=== PATIENT | female | born 1935 | race Caucasian/White ===

== ENCOUNTER 2019-11-26 20:24 | Inpatient (IN) | payer MEDICARE, BC ==
--- NOTE | 2019-11-26 21:46 | RAD ---
PORTABLE CHEST: 11/26/19 HISTORY: Dyspnea. Seizures. No comparison. Borderline cardiomegaly. Mild vascular congestion. No focal infiltrate. Suboptimal exam. Soft tissue attenuation obscures the lung bases. IMPRESSION: Mild vascular congestion. POS: [facility]
[2019-11-26 21:47] LABS: #Lymphocytes 0.3 thou/uL (1.20-3.40); %Basophils 0.4 % (0.0-1.0); %Lymphocytes 4.1 % (21.0-51.0); %Monocytes 11.8 % (0.0-10.0); %Neutrophils 83.6 % (42.0-75.0); Hemoglobin 14.2 g/dL (12.0-16.0); Mean Corpuscular HGB CONC 34.2 g/dL (32.0-36.0); Mean Corpuscular Hemoglobin 33.5 pg (27.0-31.0); Mean Corpuscular Volume 98.1 fL (78.0-98.0); Platelet Count 209 thou/uL (130-400); RBC Distribution Width 12.6 % (11.5-14.5); Red Blood Cell (RBC) Count 4.23 mill/uL (4.20-5.40); White Blood Cell (WBC) Count 8.4 thou/uL (4.8-10.8)
[2019-11-26] MEDS ORDERED: Acetaminophen 325 MG TAB ONE (21:51)
[2019-11-26 21:59] LABS: Bacteria/HPF 4+ HPF (None Seen); Bilirubin Negative (Negative); Blood, Urine 1+ (Negative); Clarity Turbid (Clear); Glucose, Urine (Dipstick) Normal (Negative); Leukocyte 250 Leu/uL (Negative); Nitrite 2+ (Negative); Protein, Urine (Dipstick) 70 mg/dL (Neg-Trace); Squamous Epithelial 0-3 HPF (0-3); Urobilinogen 6 mg/dL (Less than 2); WBC/HPF 21-50 HPF (0-3)
--- NOTE | 2019-11-26 22:01 | CT ---
CT HEAD WITHOUT CONTRAST: 11/26/19 HISTORY: Mental status change. Ventricles have normal size and position given the degree of atrophy. There is no evidence of intracranial mass or hemorrhage. No evidence of acute infarct. Sinuses are cl ear. There is evidence of prior left mastoid resection. IMPRESSION: No acute intracranial process. POS: [facility]
[2019-11-26 22:09] LABS: ALT (SGPT) 23 U/L (8-55); AST (SGOT) 29 U/L (5-34); Albumin 3.9 g/dL (3.4-4.8); Alkaline Phosphatase 57 U/L (40-110); Anion Gap 14 mmol/L (10-20); BUN (Urea Nitrogen) 27 mg/dL (9.8-20.1); Bilirubin, Total 0.7 mg/dL (0.2-1.2); Calc. Creatinine Clearance 0 mL/min (70-130); Calcium 9.2 mg/dL (7.8-10.44); Carbon Dioxide 28 mmol/L (23-31); Chloride 102 mmol/L (98-107); Estimated GFR-MDRD 64; Globulin 2.9 g/dL (2.4-3.5); Glucose 153 mg/dL (83-110); Potassium 3.7 mmol/L (3.5-5.1); Protein, Total 6.8 g/dL (6.0-8.3); Sodium 140 mmol/L (136-145)
[2019-11-26] MEDS ORDERED: cefTRIAXone\\ROCEPHIN 2 GM VIAL ONE (22:37)
[2019-11-27] MEDS ORDERED: Acetaminophen 325 MG TAB PO PRN (01:07)
--- NOTE | 2019-11-27 01:27 | PDOC.EVN ---
Event Note - Event Note Event Note: Patient also has a sacral decubitus lesion that is at least stage II, but generally unstageable. It is present on admission. Will order wound care per nursing protocol.
--- NOTE | 2019-11-27 01:48 | HP ---
CHIEF COMPLAINT: Shaking, possible seizures. HISTORY OF PRESENT ILLNESS: The patient is an 84-year-old female, who has dementia and is only oriented x1 and unable to give additional history. The patient's daughter was apparently with her earlier but has departed prior to my arrival and history is largely based on information the daughter gave Nursing and the ER records. The patient initially presented to the emergency department. She apparently had a couple of episodes at home in which she had generalized shaking; however, the patient was fully awake through these episodes. The patient and the patient's daughter reported that she had no cough or respiratory symptoms; however, in the emergency department she was febrile. REVIEW OF SYSTEMS: Unobtainable due to the patient's dementia. 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 She has history of hypothyroidism, dementia, and depression. PAST SURGICAL HISTORY: Wrist surgery and breast implants. SOCIAL HISTORY: Nonsmoker, nondrinker, nondrug user. Apparently still lives at home with family. Code status could not be addressed. ALLERGIES: NONE KNOWN. CURRENT MEDICATIONS: 1. Risperidone 0.25 mg 3 tablets p.o. at bedtime. 2. Alprazolam 0.5 mg 1-2 p.o. at bedtime p.r.n. 3. Memantine 10 mg 1 p.o. b.i.d. 4. Donepezil 10 mg daily. PHYSICAL EXAMINATION: On arrival; VITAL SIGNS: BP 122/72, pulse 93, respirations 16, temperature is 101.2, O2 sats 91%. Most recent vitals; BP 103/74, pulse 87, respirations 16, temperature 98.3, O2 saturation 99% on room air, and she is afebrile. GENERAL APPEARANCE: Age-appropriate female. She is in no distress. She is awake and alert but not very interactive, although she does make good eye contact and will speak typically one-word sentences. She is in no distress. HEENT: PERRL. She has no OP lesions. Oral mucosa is pink and moist. NECK: Supple and symmetric. There is no JVD. There is no lymphadenopathy palpable. HEART: Regular with frequent PVCs noted on exam. There are no murmurs, gallops, or rubs. LUNGS: Clear to auscultation bilaterally with good chest wall expansion and air exchange. There are no wheezes or rales noted. ABDOMEN: Soft, nontender, and nondistended. Positive bowel sounds. No masses. No organomegaly. EXTREMITIES: No cyanosis, clubbing, or edema. Peripheral pulses are strong and symmetric. PSYCHIATRIC: The patient is calm and has a generally normal affect. NEUROLOGICAL: The patient is only oriented x1. She will answer simple questions with simple answers. Cranial nerves appear to be intact and she appears to move all extremities spontaneously without focal deficits. LABORATORY DATA: White count is 8.4, hemoglobin 14.2, platelets 209. Sodium is 140, potassium 3.7, chloride 102, CO2 is 24, BUN is 27, creatinine is 0.85, glucose 153, lactic acid 1.3, calcium 9.2. LFTs normal. Troponin 0.02. Urinalysis shows turbid character. There is 1+ blood, 2+ nitrites, leukocyte esterase is positive, 7-10 red cells, 21-50 white cells, and 4+ bacteria. Flu screen is negative. Chest x-ray is negative. CT of the brain shows no acute findings. EKG shows sinus arrhythmia, cannot rule out old septal infarct, incomplete right bundle. IMPRESSION AND PLAN: 1. Urinary tract infection with rigors and fever. The patient is placed on observation status. We will continue with IV antibiotics which were started in the emergency department with Rocephin, we will continue that. We will need to follow up urine and blood cultures. The rigors are certainly concerning for systemic infection. Depending on clinical course, may warrant inpatient admission to await urine and blood cultures. She does not appear to be septic, however. 2. Dementia. We will continue with her usual home regimen of donepezil, p.r.n. alprazolam. 3. Hypothyroidism. We will continue levothyroxine. 4. History of depression. We will continue Zoloft. 5. We will need to try to reach out the patient's daughter in the morning to help establish her code status. Job ID: [id number]
[2019-11-27 02:05] VITALS: BMI 17.6
[2019-11-27 05:55] LABS: Anion Gap 12 mmol/L (10-20); BUN (Urea Nitrogen) 23 mg/dL (9.8-20.1); Calc. Creatinine Clearance 51 mL/min (70-130); Calcium 8.6 mg/dL (7.8-10.44); Carbon Dioxide 29 mmol/L (23-31); Chloride 106 mmol/L (98-107); Estimated GFR-MDRD 84; Glucose 99 mg/dL (83-110); Potassium 3.8 mmol/L (3.5-5.1); Sodium 143 mmol/L (136-145)
[2019-11-27 06:46] LABS: Band 15 % (5-11); Hemoglobin 13.3 g/dL (12.0-16.0); Lymphocytes 9 % (21-51); MDiff Complete? YES; Mean Corpuscular Hemoglobin 33.6 pg (27.0-31.0); Mean Platelet Volume 7.9 fL (7.4-10.4); Monocytes 13 % (0-10); Neutrophil 63 % (42-75); Platelet Count 199 thou/uL (130-400); RBC Distribution Width 12.8 % (11.5-14.5); Red Blood Cell (RBC) Count 3.96 mill/uL (4.20-5.40); White Blood Cell (WBC) Count 7.8 thou/uL (4.8-10.8)
[2019-11-27] MEDS: Famotidine 20 MG TAB PO SCH ×2 (08:30→20:38)
[2019-11-27] MEDS: Enoxaparin Sodium 40 MG/0.4 ML SYRINGE SC SCH (08:30)
[2019-11-27] MEDS ORDERED: ALPRAZolam 0.5 MG TAB PO PRN (09:55)
--- NOTE | 2019-11-27 16:21 | PDOC.HOSPP ---
- Subjective Subjective: Seen and examined. Follow-up evaluation on urinary tract infection with fever, rigors, and worsening mental status. Patient is alert and oriented times one at baseline. Patient currently is able to tell me her name. She does not know where she is at, and does not recognize this place is a hospital. Patient does not know the year. Patient does not a situation. Patient denies pain. Patient breathing comfortably without supplemental oxygen. - Objective Vital Signs & Weight: Vital Signs (12 hours) Temp Pulse Resp BP BP BP Pulse Ox 11/27/19 15:58 98.6 F 88 20 145/72 H 97 11/27/19 11:11 98.0 F 107 H 20 145/69 H 99 11/27/19 08:00 99.2 F 67 20 132/66 99 11/27/19 07:20 99.2 F 67 20 132/66 99 11/27/19 04:39 98.3 F 76 16 112/67 97 Weight Admit Weight 113 lb 0.143 oz Weight 113 lb 0.143 oz Result Diagrams: 11/27/19 05:18 11/27/19 05:18 Radiology Reviewed by me: Yes Hospitalist ROS - Review of Systems All other systems reviewed; all pertinent +/- noted in HPI/Subj - Medication Medications: Active Medications Generic Name Dose Route Start Last Admin Trade Name Kahlil PRN Reason Stop Dose Admin Enoxaparin Sodium 40 mg 11/27/19 09:00 11/27/19 08:30 Lovenox SC 40 mg 0900 KATE Administration Famotidine 20 mg 11/27/19 09:00 11/27/19 08:30 Pepcid PO 20 mg BID KATE Administration - Exam General Appearance: NAD, awake alert Eye: anicteric sclera ENT: normocephalic atraumatic, moist mucosa Neck: supple, symmetric, no thyromegaly Heart: no murmur, no gallops, no rubs Respiratory: CTAB, no wheezes, no rales, no ronchi, normal chest expansion Gastrointestinal: soft, non-tender, non-distended, no guarding, no rigidity Extremities: 1+ LE edema Skin: no lesions, no rashes Neurological: cranial nerve grossly intact, no focal deficits Musculoskeletal: generalized weakness Psychiatric: oriented to person, flat affect. negative: normal behavior, oriented to place, oriented to time Hosp A/P (1) UTI (urinary tract infection) Status: Acute (2) Dementia Code(s): F03.90 - UNSPECIFIED DEMENTIA WITHOUT BEHAVIORAL DISTURBANCE Status: Acute (3) Mood disorder Code(s): F39 - UNSPECIFIED MOOD [AFFECTIVE] DISORDER Status: Acute (4) Anxiety Code(s): F41.9 - ANXIETY DISORDER, UNSPECIFIED Status: Acute (5) Sepsis Code(s): A41.9 - SEPSIS, UNSPECIFIED ORGANISM Status: Acute - Plan Plan: medical unit broad-spectrum antibiotics with coverage for urinary tract infection de escalate to culture and sensitivity as able, preliminary e. coli sepsis protocol mild pulmonary vascular congestion seen on the chest x-ray will add echocardiogram to monitor for heart failure fluid restrictions breathing comfortably on room air, I will hold diuretic therapy at this time in the setting of sepsis blood pressure control blood sugar control continue other home medications as able G.I. prophylaxis DVT prophylaxis
[2019-11-27] MEDS ORDERED: Haloperidol Lactate 5 MG/ML VIAL SLOW IVP PRN (18:12)
[2019-11-27] MEDS ORDERED: Melatonin 3 MG TAB PO PRN (18:13)
[2019-11-27] MEDS ORDERED: diphenhydrAMINE 25 MG CAP PO PRN (18:13)
[2019-11-27] MEDS ORDERED: Benzonatate 100 MG CAP PO PRN (18:13)
[2019-11-27] MEDS ORDERED: Labetalol HCl 100 MG/20 ML VIAL SLOW IVP PRN (18:13)
[2019-11-27] MEDS: Haloperidol Lactate 5 MG/ML VIAL IM PRN (18:24)
[2019-11-27] MEDS: risperiDONE 0.25 MG TAB PO SCH (20:38)
[2019-11-27] MEDS: Docusate 100 MG CAP PO PRN (20:38)
[2019-11-27] MEDS ORDERED: Prevnar 13-Val Conj/PF 0.5 ML SYRINGE IM ONE (21:00)
[2019-11-27] MEDS ORDERED: FLU VACC TS2019-20(65YR UP)/PF 180 MCG/0.5 ML SYRINGE IM ONE (21:00)
[2019-11-27] MEDS: cefTRIAXone\\ROCEPHIN 1 GM in Sodium Chloride 0.9% 100 ML IVPB SCH (21:18)
[2019-11-28] MEDS: Donepezil HCl 10 MG TAB PO SCH (08:15)
[2019-11-28] MEDS: Enoxaparin Sodium 40 MG/0.4 ML SYRINGE SC SCH (08:15)
[2019-11-28] MEDS: Famotidine 20 MG TAB PO SCH ×2 (08:15→19:35)
[2019-11-28] MEDS: Haloperidol Lactate 5 MG/ML VIAL IM PRN ×2 (11:14→17:52)
[2019-11-28] MEDS ORDERED: risperiDONE 0.25 MG TAB PO SCH (11:30)
--- NOTE | 2019-11-28 13:18 | PDOC.HOSPP ---
- Subjective Subjective: Seen and examined. Clinically improved. I is open more alert and awake. She is very impulsive and gets out of bed without warning. The alarm was going off very frequently. Patient slept well with the nighttime risperidone. Will have patient evaluated by physical therapy and occupational therapy, may require sub acute placement. Discussed case with the patient's daughter over the phone, time was given for questions, all answered in detail. Patient's daughter is happy with plan of care. - Objective Vital Signs & Weight: Vital Signs (12 hours) Temp Pulse Resp BP BP Pulse Ox 11/28/19 11:25 97.9 F 75 16 120/69 94 L 11/28/19 11:23 96 11/28/19 08:36 98.6 F 71 18 105/66 96 11/28/19 08:00 98.6 F 71 18 105/66 105/66 96 11/28/19 03:54 98.6 F 75 16 112/71 94 L Weight Admit Weight 113 lb 0.143 oz Weight 113 lb 0.143 oz I&O: 11/27/19 11/28/19 11/29/19 06:59 06:59 06:59 Intake Total 100 Balance 100 Result Diagrams: 11/27/19 05:18 11/27/19 05:18 Radiology Reviewed by me: Yes Hospitalist ROS - Review of Systems All other systems reviewed; all pertinent +/- noted in HPI/Subj - Medication Medications: Active Medications Generic Name Dose Route Start Last Admin Trade Name Freq PRN Reason Stop Dose Admin Docusate Sodium 100 mg 11/27/19 18:13 11/27/19 20:38 Colace PO 100 mg BIDPRN PRN Administration Constipation Donepezil HCl 10 mg 11/28/19 09:00 11/28/19 08:15 Aricept PO 10 mg DAILY KATE Administration Enoxaparin Sodium 40 mg 11/27/19 09:00 11/28/19 08:15 Lovenox SC 40 mg 0900 KATE Administration Famotidine 20 mg 11/27/19 09:00 11/28/19 08:15 Pepcid PO 20 mg BID KATE Administration Haloperidol Lactate 5 mg 11/27/19 18:16 11/28/19 11:14 Haldol IM 5 mg Q4H PRN Administration Agitation Ceftriaxone Sodium 1 gm/ 100 mls @ 200 mls/hr 11/27/19 22:00 11/27/19 21:18 Sodium Chloride IVPB 100 mls Q24HR KATE Administration Memantine 10 mg 11/27/19 21:00 11/28/19 08:15 Namenda PO 10 mg BID KATE Administration Risperidone 0.75 mg 11/27/19 21:00 11/27/19 20:38 Risperidone PO 0.75 mg HS KATE Administration Risperidone 0.75 mg 11/28/19 11:30 11/28/19 12:22 Risperidone PO 11/28/19 13:30 0.75 mg NOW KATE Administration - Exam General Appearance: NAD, awake alert Eye: PERRL ENT: normocephalic atraumatic, moist mucosa Neck: supple, symmetric, no lymphadenopathy Heart: no murmur, no gallops, no rubs Respiratory: CTAB, no wheezes, no rales, no ronchi, normal chest expansion, no tachypnea Gastrointestinal: soft, non-tender Extremities: 1+ LE edema Skin: no lesions, no rashes Neurological: cranial nerve grossly intact, no focal deficits Musculoskeletal: generalized weakness Psychiatric: oriented to person. negative: oriented to place, oriented to time Psychiatric - other findings: impulsive, gets out of bed without warning. Fall risk/ precautions in place Hosp A/P (1) UTI (urinary tract infection) Status: Acute (2) Dementia Code(s): F03.90 - UNSPECIFIED DEMENTIA WITHOUT BEHAVIORAL DISTURBANCE Status: Acute (3) Mood disorder Code(s): F39 - UNSPECIFIED MOOD [AFFECTIVE] DISORDER Status: Acute (4) Anxiety Code(s): F41.9 - ANXIETY DISORDER, UNSPECIFIED Status: Acute (5) Sepsis Code(s): A41.9 - SEPSIS, UNSPECIFIED ORGANISM Status: Acute - Plan Plan: medical unit PT/ OT eval and treat CM consult, may benefit from home with home health vs SNF placement broad-spectrum antibiotics with coverage for urinary tract infection Agosto sensitive e. coli, will transition to oral on D/c sepsis protocol mild pulmonary vascular congestion seen on the chest x-ray will add echocardiogram to monitor for heart failure fluid restrictions breathing comfortably on room air, I will hold diuretic therapy at this time in the setting of sepsis blood pressure control blood sugar control continue other home medications as able G.I. prophylaxis DVT prophylaxis
[2019-11-28] MEDS: risperiDONE 0.25 MG TAB PO SCH (19:35)
[2019-11-28] MEDS: Docusate 100 MG CAP PO PRN (19:35)
[2019-11-28] MEDS: cefTRIAXone\\ROCEPHIN 1 GM in Sodium Chloride 0.9% 100 ML IVPB SCH (21:05)
[2019-11-29] MEDS: Enoxaparin Sodium 40 MG/0.4 ML SYRINGE SC SCH (08:31)
[2019-11-29] MEDS: Famotidine 20 MG TAB PO SCH (08:33)
[2019-11-29] MEDS: Donepezil HCl 10 MG TAB PO SCH (08:38)
--- NOTE | 2019-11-29 16:30 | DIS ---
DATE OF ADMISSION: 11/28/2019 DATE OF DISCHARGE: 11/29/2019 REASON FOR HOSPITALIZATION: Fever with rigors secondary to urinary tract infection. SIGNIFICANT FINDINGS: The patient was found to have acute urinary tract infection. PROCEDURES PERFORMED AND TREATMENTS RENDERED: The patient was admitted to [facility] in [place], [place] on 11/27/2019, please see full history and physical for details. With the patient having a fever in the home setting, she was having shaking and this is believed to be rigors secondary to severe infection. At the time, the patient's family was not sure if she was having seizure-type activity, though she has never had seizures in the past. She did not have any seizures throughout her hospitalization and was monitored closely for this type of activity. The patient was identified to have urinary tract infection, and she was started on IV antibiotic therapy. The patient is alert and oriented to self at baseline, and she has a history of dementia. Much of the patient's history was obtained through her daughter, Ms. Temi Herrera, who is a primary material handling crew supervisor and they also have personal care assistance in the home setting. The patient had urine culture, which proved to be growing E coli, which was sensitive to many oral medications, and she was recommended safe for discharge to the home setting on oral antibiotic therapy. The patient has been afebrile for the past 48 hours. The patient is having no pulmonary symptoms. The patient is breathing comfortably on room air. The patient's vital signs are otherwise stable. As the patient's mentation has returned to her baseline, she was recommended safe for discharge with close followup and 24-hour supervision by her family. The patient recommended to follow up with primary care physician in the next 5 to 7 days. CONDITION ON DISCHARGE: Stable. SPECIFIC INSTRUCTIONS FOR THE PATIENT/FAMILY: 1. The patient is recommended to complete a full course of oral antibiotics, Cefpodoxime 200 mg one tablet p.o. b.i.d. for 7 days, this was sent to her preferred pharmacy for her convenience. 2. All other medications were continued without changes. 3. The patient recommended to follow up with primary care physician in the next 5 to 7 days. 4. The patient recommended to return to acute care hospital immediately if signs or symptoms return, worsen, or any other new symptoms occur. DISCHARGE MEDICATIONS: 1. Cefpodoxime 200 mg one tablet p.o. b.i.d., for 7 days, 14 tablets. 2. Donepezil 10 mg one tablet p.o. daily. 3. Memantine 10 mg one tablet p.o. b.i.d. 4. Risperidone 0.75 mg p.o. at bedtime. 5. Xanax 1 tablet p.o. at bedtime p.r.n. insomnia. Greater than 34 minutes spent in coordinating care and discharge process for this patient. Job ID: [id number]
[2019-11-29 16:32] VITALS: BP 145/70; TEMP 97.5
--- NOTE | 2019-12-01 10:32 | PQF ---
MANSI CRANE ERIK [id number] T4-A- [id number] [id number] CLINICAL DOCUMENTATION CLARIFICATION FORM: POST DISCHARGE Addendum to original discharge summary date: ____ Late entry note date: __ DATE: 12/01/2019 ATTN:Nate Sarmiento Please exercise your independent, professional judgment in responding to the clarification form. Clinical indicators are provided on the bottom of this form for your review Please check appropriate box(s) to clarify if the following diagnosis has been ruled in or ruled out: SEPSIS [ XX ] Ruled in diagnosis [ ] Continue to treat [ ] Resolved [ ] Ruled out diagnosis [ ] Cannot rule out diagnosis [ ] Other diagnosis [ ] Unable to determine In addition, please specify: Present on Admission (POA): [ XX ] Yes [ ] No [ ] Unable to determine For continuity of documentation, please document condition throughout progress notes and discharge summary. Thank You. CLINICAL INDICATORS - SIGNS / SYMPTOMS / LABS PN 11/26 "Sepsis" PN 11/26 "evaluation of UTI with fever" Labs WBC: 11/25=8.4 11/26=7.8 Labs Lactate acid: 11/25=1.3 DS 11/28 "Urine culture:E. coli" HP 11/26 "She does not appear to be septic" RISK FACTORS HP 11/26-84 years old female HP 11/26-Dementia HP 11/26-UTI Event note 11/26-Sacral ulcer TREATMENTS HP 11/26-Urine and blood culture HP 11/26-IVF PN 11/26-Sepsis protocol initiated NOV 10-Rocephin 2gm IV (This form is maintained as a part of the permanent medical record) 2014 [employer] All Rights Reserved [email or web address] [phone] ALEJANDRA
--- NOTE | 2019-12-01 22:42 | PQF ---
MANSI CRANE ERIK [id number] T4-A- 4401 [id number] CLINICAL DOCUMENTATION CLARIFICATION FORM: POST DISCHARGE Addendum to original discharge summary date: ____ Late entry note date: __ Date: 12/01/2019 ATTN: Nate Sarmiento Please exercise your independent, professional judgment in responding to the clarification form. Clinical indicators are provided on the bottom of this form for your review Please check appropriate box(s): [ XX ] Protein Calorie Malnutrition: [ ] Mild [ XX ] Moderate [ ] Severe [ ] Other Malnutrition (please specify) __ [ ] Underweight without malnutrition [ ] Cachexia [ ] Other diagnosis [ ] Unable to determine CLINICAL INDICATORS - SIGNS / SYMPTOMS / LABS 11/26 "suggesting severe malnutrition" 11/26 "BMI 17" 11/26 "very weak and confused" Labs Albumin 11/25: 3.9 Labs Total Protein 11/25: 6.8 Two or More of the Following: 11/26 "severe muscle wasting to temporalis muscles, loss of fat overlying ribs, buccal fat, and interosseous muscle wasting" 11/26 "suggesting severe malnutrition in the context of chronic illness" RISK FACTORS HP 11/26-84 years old female HP 11/26-Dementia HP 11/26-UTI Event note 11/26-Sacral ulcer 11/26-Hypothyroidism RD 11/26-Depression RD 11/26-Buttock ulcer TREATMENT: HP 11/26-IVF RD 11/26-Recommend liberalized Regular diet during admit to promote PO intake and weight gain. 11/26-Fluid restriction per MD for mild pulmonary edema 11/26-Recommend Ensure Enlive daily to promote weight gain 11/26-Recommend Roberto BID for wound healing 11/26-Monitor weight change 11/26-Dietitian consult Moderate Malnutrition (in acute illness) Energy Intake: <75% of estimated energy requirement for > 7 days Weight Loss: 1-2%/1 week; 5%/ 1 month; 7.5%/3 months Other: mild body fat loss; mild muscle mass loss; mild fluid accumulation; Severe Malnutrition (in acute illness) Energy Intake: < 50% of estimated energy requirement for > 5 days Weight Loss: >1-2%/1 week; >5%/1 month; >7.5%/3 months Other: moderate body fat loss; moderate muscle mass loss; moderate- severe fluid accumulation; measurably reduced insurance sales supervisor strength Moderate Malnutrition (in chronic illness) Energy Intake: <75% of estimated energy requirement for >1 month Weight Loss: 5%/1 month; 7.5%/3 months; 10%/6 months; 20%/1 year Other: mild body fat loss; mild muscle mass loss; mild fluid accumulation Severe Malnutrition (in chronic illness) Energy Intake: <75% of estimated energy requirement for >1 month Weight Loss: >5%/1 month; >7.5%/3 months; >10%/6 months; >20%/1 year Other: severe body fat loss; severe muscle mass loss; severe fluid accumulation ; measurably reduced insurance sales supervisor strength (This form is maintained as a part of the permanent medical record) 2014 [employer] All Rights Reserved [email or web address] [phone] MTDClem
--- NOTE | 2019-12-01 22:48 | PQF ---
MANSI CRANE ERIK [id number] T4-A- 4401 [id number] CLINICAL DOCUMENTATION CLARIFICATION FORM: POST DISCHARGE Addendum to original discharge summary date: ____ Late entry note date: __ DATE: 12/01/2019 ATTN: Nate Sarmiento Please exercise your independent, professional judgment in responding to the clarification form. Clinical indicators are provided on the bottom of this form for your review Please check appropriate box(s): [ XX ] Encephalopathy: Etiology: [ ] Metabolic [ ] Toxic [ XX ] Septic [ ] Drug induced: [ ] in the setting of underlying dementia [ ] Other (please specify) [ ] Transient Alteration of Awareness [ ] Other diagnosis [ ] Unable to determine In addition, please specify: Present on Admission (POA): [ XX ] Yes [ ] No [ ] Unable to determine For continuity of documentation, please document condition throughout progress notes and discharge summary. Thank You. CLINICAL INDICATORS - SIGNS / SYMPTOMS / LABS PN 11/26 "worsening mental status" PN 11/26 "she does not know where she is at and does not recognize this place is a hospital" PN 11/26 "Patient does not know the year" PN 11/26 "Patient self not know the situation" RD 11/26 "very weak and confused" RISK FACTORS HP 11/26-84 years old female HP 11/26-Dementia HP 11/26-UTI Event note 11/26-Sacral ulcer RD 11/26-Hypothyroidism RD 11/26-Depression RD 11/26-Buttock ulcer TREATMENTS: HP 11/26-IVF Collected 11/25-Brain CT NOV 10-Rocephin 2gm IV NOV 10-Haldol 5mg IM NOV 10-Risperidone 0.75 mg Oral (This form is maintained as a part of the permanent medical record) 2014 [employer] All Rights Reserved [email or web address]
== END 2019-11-29 14:35 | disposition home health service (06) | DRG 871 ==
LOC: ERS 20:24 → T4-A 23:08 → OBSVTOIN 11-28 10:21
PROVIDERS: ADMIT Internal Medicine; ATTEND Internal Medicine
PROC: 3E02340 Introduction of Influenza Vaccine into Muscle, Percutaneous Approach (ICD-10-PCS; principal; 2019-11-27)
PROC: 3E0234Z Introduction of Serum, Toxoid and Vaccine into Muscle, Percutaneous Approach (ICD-10-PCS; 2019-11-27)
DX: A41.9 Sepsis, unspecified organism (principal); G93.41 Metabolic encephalopathy; N39.0 Urinary tract infection, site not specified; E44.0 Moderate protein-calorie malnutrition; Z68.1 Body mass index [BMI] 19.9 or less, adult; Z23 Encounter for immunization; F03.90 Unspecified dementia, unspecified severity, without behavioral disturbance, psychotic disturbance, mood disturbance, and anxiety; H91.92 Unspecified hearing loss, left ear; E03.9 Hypothyroidism, unspecified; F32.9 Major depressive disorder, single episode, unspecified; L89.152 Pressure ulcer of sacral region, stage 2; F41.9 Anxiety disorder, unspecified; B96.20 Unspecified Escherichia coli [E. coli] as the cause of diseases classified elsewhere; Z79.899 Other long term (current) drug therapy; L89.321 Pressure ulcer of left buttock, stage 1
CPT/HCPCS: 36415; 70450; 71045; 80048; 80053; 81003; 81015; 83605; 84484; 85025; 87040; 87077; 87086; 87186; 87804; 93005; 93306; 96361; 96365; A4353; J0696; J1630; J1650; J3490

== ENCOUNTER 2019-12-02 19:29 | Emergency (ER) | payer MEDICARE, BC ==
[2019-12-02] MEDS ORDERED: Bacitracin 1 PK ONE (20:03)
[2019-12-02 20:30] LABS: #Eosinphils 0.1 thou/uL (0.0-0.7); #Lymphocytes 0.7 thou/uL (1.20-3.40); #Monocytes 0.8 thou/uL (0.11-0.59); #Neutrophils 9.6 thou/uL (1.40-6.50); %Basophils 0.4 % (0.0-1.0); %Eosinophils 0.6 % (0.0-10.0); %Lymphocytes 5.9 % (21.0-51.0); %Monocytes 7.4 % (0.0-10.0); %Neutrophils 85.7 % (42.0-75.0); Hemoglobin 15.3 g/dL (12.0-16.0); Mean Corpuscular HGB CONC 33.8 g/dL (32.0-36.0); Mean Corpuscular Hemoglobin 33.8 pg (27.0-31.0); Mean Corpuscular Volume 99.7 fL (78.0-98.0); Mean Platelet Volume 7.8 fL (7.4-10.4); Platelet Count 345 thou/uL (130-400); RBC Distribution Width 12.7 % (11.5-14.5); Red Blood Cell (RBC) Count 4.53 mill/uL (4.20-5.40); White Blood Cell (WBC) Count 11.2 thou/uL (4.8-10.8)
[2019-12-02 20:37] LABS: INR-International Normal Ratio 0.9; Prothrombin Time 12.6 SEC (12.0-14.7)
--- NOTE | 2019-12-02 20:43 | RAD ---
RADIOGRAPH CHEST 1 VIEW: DATE: 12/02/2019 HISTORY: 84-year-old female status post acute chest trauma from fall FINDINGS: The thoracic aorta is tortuous and ectatic. There is no evidence of airspace density, pulmonary edema , cardiomegaly, or pneumothorax. The lateral costophrenic angles are not effaced. IMPRESSION: 1) No acute cardiopulmonary findings. 2) ectasia of thoracic aorta.
--- NOTE | 2019-12-02 20:44 | RAD ---
RADIOGRAPH LEFT ELBOW 4VIEWS: DATE: 12/02/2019 HISTORY: 84-year-old female with acute traumatic left elbow pain from fall FINDINGS: There is no dislocation. No fracture is identified. IMPRESSION: No fracture.
[2019-12-02] MEDS ORDERED: CEFAZOLIN 1 GM VIAL ONE (20:45)
[2019-12-02 20:53] LABS: ALT (SGPT) 43 U/L (8-55); AST (SGOT) 43 U/L (5-34); Albumin 4.4 g/dL (3.4-4.8); Alkaline Phosphatase 69 U/L (40-110); Anion Gap 13 mmol/L (10-20); BUN (Urea Nitrogen) 34 mg/dL (9.8-20.1); Bilirubin, Total 0.4 mg/dL (0.2-1.2); Calc. Creatinine Clearance 0 mL/min (70-130); Calcium 9.8 mg/dL (7.8-10.44); Carbon Dioxide 32 mmol/L (23-31); Chloride 102 mmol/L (98-107); Estimated GFR-MDRD 57; Globulin 2.8 g/dL (2.4-3.5); Glucose 129 mg/dL (83-110); Potassium 4.4 mmol/L (3.5-5.1); Protein, Total 7.2 g/dL (6.0-8.3); Sodium 143 mmol/L (136-145)
--- NOTE | 2019-12-02 21:09 | CT ---
CT BRAIN NONCONTRAST: DATE: 12/02/2019 HISTORY: 84-year-old female status post acute head trauma from fall. FINDINGS: There is no evidence of acute intra-axial or extra-axial hemorrhage. There is no midline shift or any other mass effect. There is no extra-axial fluid collection. No acute calvarial fracture. There is diffuse brain parenchymal volume loss. There is a left mastoidectomy defect. There is ventriculomegal y, probably due to central brain parenchymal volume loss. There is a small region of encephalomalacia and gliosis involving right parasagittal frontal lobe at the vertex, involving media l portion of precentral gyrus and posterior aspect of superior frontal gyrus. There is no interval change overall since 11/26/2019. IMPRESSION: 1) No acute intracranial findings. 2) involutional changes. 3) status post left mastoidectomy 4) small old insult at the right cerebral convexity.
--- NOTE | 2019-12-02 21:12 | CT ---
CT CERVICAL SPINE NONCONTRAST: DATE: 12/02/2019 HISTORY: cervical trauma: 84-year-old female status post fall FINDINGS: There are no jumped or perched facets. There is no evidence of acute fracture. The vertebral body hei ghts are maintained. There is no prevertebral soft tissue swelling. There are degenerative disc changes and facet osteoarthrosis. IMPRESSION: 1) Cervical spondylosis. 2) no evidence of acute fracture or acute traumatic subluxation.
== END 2019-12-02 22:57 | disposition home or self-care (01) ==
LOC: ERS 19:29
DX: S51.012A Laceration without foreign body of left elbow, initial encounter (principal); S00.81XA Abrasion of other part of head, initial encounter; E21.3 Hyperparathyroidism, unspecified; F03.90 Unspecified dementia, unspecified severity, without behavioral disturbance, psychotic disturbance, mood disturbance, and anxiety; F32.9 Major depressive disorder, single episode, unspecified; Z79.899 Other long term (current) drug therapy; W19.XXXA Unspecified fall, initial encounter
CPT/HCPCS: 70450; 71045; 72125; 80053; 83880; 84484; 85025; 85610; 85730; 93005; 96365; J0690

== ENCOUNTER 2020-04-25 18:01 | Inpatient (IN) | payer MEDICARE, BC, OTHER ==
[2020-04-25 19:02] LABS: #Eosinphils 0.1 thou/uL (0.0-0.7); #Monocytes 1.1 thou/uL (0.11-0.59); %Basophils 0.4 % (0.0-1.0); %Eosinophils 1.1 % (0.0-10.0); %Lymphocytes 9.5 % (21.0-51.0); %Monocytes 10.4 % (0.0-10.0); %Neutrophils 78.7 % (42.0-75.0); Hemoglobin 14.8 g/dL (12.0-16.0); Mean Corpuscular HGB CONC 33.9 g/dL (32.0-36.0); Mean Corpuscular Hemoglobin 33.7 pg (27.0-31.0); Mean Corpuscular Volume 99.6 fL (78.0-98.0); Mean Platelet Volume 7.6 fL (7.4-10.4); Platelet Count 286 thou/uL (130-400); RBC Distribution Width 12.7 % (11.5-14.5); Red Blood Cell (RBC) Count 4.39 mill/uL (4.20-5.40); White Blood Cell (WBC) Count 10.1 thou/uL (4.8-10.8)
[2020-04-25 19:21] LABS: Bacteria/HPF None Seen HPF (None Seen); Bilirubin Negative (Negative); Blood, Urine Negative (Negative); Clarity Turbid (Clear); Glucose, Urine (Dipstick) Normal (Negative); Ketone, Urine Negative (Negative); Leukocyte 250 Leu/uL (Negative); Nitrite Negative (Negative); Protein, Urine (Dipstick) 50 mg/dL (Neg-Trace); Specific Gravity, Urine 1.039 (1.002-1.036); Transitional Epithelial 0-3 HPF (None Seen); Urobilinogen 3 mg/dL (Less than 2); WBC/HPF 21-50 HPF (0-3)
[2020-04-25 19:26] LABS: ALT (SGPT) 16 U/L (8-55); AST (SGOT) 24 U/L (5-34); Albumin 3.8 g/dL (3.4-4.8); Alkaline Phosphatase 63 U/L (40-110); Anion Gap 15 mmol/L (10-20); BUN (Urea Nitrogen) 34 mg/dL (9.8-20.1); Bilirubin, Total 0.5 mg/dL (0.2-1.2); CK (CPK) 143 U/L (29-168); Calc. Creatinine Clearance 0 mL/min (70-130); Calcium 9.2 mg/dL (7.8-10.44); Carbon Dioxide 26 mmol/L (23-31); Chloride 101 mmol/L (98-107); Estimated GFR-MDRD 79; Globulin 3.2 g/dL (2.4-3.5); Glucose 117 mg/dL (83-110); Potassium 4.1 mmol/L (3.5-5.1); Sodium 138 mmol/L (136-145)
--- NOTE | 2020-04-25 20:49 | RAD ---
RIGHT HIP 2 VIEWS: Date: 04/25/2020 HISTORY: Injury from a fall 6 days ago. FINDINGS/IMPRESSION: Exam includes AP and oblique views of the right hip, as well as an AP pelvis. Bone demineralization. Arthrosis changes and degenerative changes of the right femur. No acute femora l fracture. Displaced, foreshortened left femoral neck fracture. POS: [facility]
--- NOTE | 2020-04-25 20:50 | RAD ---
LEFT HIP 2 VIEWS: Date: 04/25/2020 HISTORY: Injury from a fall, will not walk. FINDINGS/IMPRESSION: Slightly comminuted subcapital left femoral neck fracture with considerable foreshortening and varus deformity. POS: [facility]
[2020-04-25] MEDS ORDERED: hydrALAZINE 20 MG/ML VIAL SLOW IVP PRN (20:51)
[2020-04-25] MEDS ORDERED: Dextrose 50% Abboject 50 ML SYRINGE SLOW IVP PRN (20:51)
[2020-04-25] MEDS ORDERED: Morphine 2 MG/ML VIAL SLOW IVP PRN (20:51)
[2020-04-25] MEDS ORDERED: Ondansetron PF 4 MG/2 ML Vial IVP PRN (20:51)
[2020-04-25] MEDS ORDERED: Dextrose 5% in Water 1,000 ML IV PRN (20:51)
--- NOTE | 2020-04-25 20:51 | RAD ---
AP PELVIS: Date: 04/24/2020 HISTORY: Injury from a fall, will not walk. FINDINGS: Again noted is a displaced, foreshortened subcapital left femoral neck fracture. No acute pelvic frac ture. Bone demineralization. Arthrosis changes of both hip joints and SI joints and lower lumbar spin e spondylosis changes are noted. IMPRESSION: Displaced, foreshortened, slightly comminuted left subcapital femoral neck fracture. POS: RRE
[2020-04-25] MEDS ORDERED: Sodium Chloride 0.9% 1,000 ML IV SCH (21:00)
[2020-04-25] MEDS ORDERED: Cyclobenzaprine 10 MG TAB PO PRN (21:00)
[2020-04-25 21:25] LABS: Phosphorus 3.2 mg/dL (2.3-4.7)
[2020-04-25] MEDS: Senokot S 8.6-50 MG TAB PO SCH (22:00)
[2020-04-25 23:41] VITALS: BMI 17.3
[2020-04-26] MEDS: cefTRIAXone\\ROCEPHIN 1 GM in Sodium Chloride 0.9% 100 ML IVPB SCH (01:15)
--- NOTE | 2020-04-26 01:40 | HP ---
REQUESTING PHYSICIAN: Dr. Brizuela, ER physician. ATTENDING PHYSICIAN: Dr. Walls. CHIEF COMPLAINT: Fall 6 days ago, unable to ambulate since. HISTORY OF PRESENT ILLNESS: This is an 84-year-old lady, who presented to the emergency room as her family reports she has been on the couch for the last 6 days, unable to ambulate. The patient had a mechanical fall on 04/19/2020, in which she was seen in the emergency room on 04/20/2020 as the family reported she was acting strangely after she fell and having shaking episodes, which was abnormal for her. The patient was evaluated in the emergency room and a head CT was obtained with no acute abnormalities. The patient did suffer a left forehead temporal laceration that Steri-Strips were applied to. The patient's family also reported a fever. The patient was given Keflex prophylactically, although her urinalysis was unremarkable. The patient was discharged home. The patient has severe dementia and was evaluated in the emergency room today as the family reported she normally walks 30 minutes a day and was unusual that she had not ambulated since she fell. The patient was found to have a left femoral neck fracture. Orthopedic Services was also consulted. Trauma Services was asked to admit the patient. The patient was discharged home with 3 days of Keflex on 04/20/2020. REVIEW OF SYSTEMS: A 10-point review of systems is negative unless otherwise indicated in the above HPI. PAST MEDICAL HISTORY: Dementia, hypothyroidism, frequent urinary tract infections, deaf in left ear and depression. PAST SURGICAL HISTORY: Wrist surgery. ALLERGIES: NO KNOWN DRUG ALLERGIES. MEDICATIONS: 1. Risperdal. 2. Alprazolam. 3. Levothyroxine. 4. Namenda. SOCIAL HISTORY: The patient lives at home with her family. Denies illicit drug use. Denies smoking history. Denies alcohol use. PHYSICAL EXAMINATION: VITAL SIGNS: Blood pressure 148/77, pulse 91, temperature 98.2, respirations 18 and SpO2 94% on room air. GENERAL: Elderly female, deconditioned, awake, alert, follows some simple commands. HEENT: Head is normocephalic. Left eye ecchymosis. Left forehead eyebrow laceration that is healing with Steri-Strips in place. Pupils are equal bilateral. Mucous membranes are slightly dry. No cervical spine tenderness. Trachea midline. RESPIRATORY: Equal chest rise and fall. Respirations are even and nonlabored. Bilateral breath sounds clear. CARDIAC: Regular rate, regular rhythm. No pedal edema. ABDOMEN: Soft, nontender, nondistended. EXTREMITIES: Moves all extremities. Left lower extremity is shortened and externally rotated. Distal pulses 2+ in all extremities. Bilateral lower extremities with rash, daughter states was bitten by a tiny ant two days ago. Ecchymoses to right great toe. NEUROLOGIC: Confused, baseline, attempts to speak but difficult to understand. LABORATORY DATA: WBC 10.1, RBC 4.39, hemoglobin 14.8, hematocrit 43.7, platelets 286. Sodium 138, potassium 4.1, chloride 101, BUN 34, creatinine 0.71, estimated GFR 79, glucose 117, calcium 9.2, phosphorus 3.2, magnesium 2.0, alkaline phos 63, albumin 3.8, troponin 0.010. Urinalysis; high specific gravity, positive protein, positive leukocyte esterase, RBCs 46, WBCs 21 to 50, positive squamous epithelial cells and positive hyaline casts, no bacteria, culture pending. DIAGNOSTICS: Hip x-ray, impression, left femoral neck fracture. Pelvis x-ray, impression, slightly comminuted left subcapital femoral neck fracture. IMPRESSION: 1. Mechanical fall 6 days ago. 2. Left femoral neck fracture. 3. Urinary tract infection, present on admission. 4. Cachexia 5. History of dementia, depression, hypothyroidism, frequent urinary tract infections, deaf left ear. PLAN: Admit the patient to the surgical floor. N.p.o. after midnight with IV maintenance fluids as the patient may be going to the OR for repair by Dr. Veras. Pain regimen. PT and OT to evaluate and treat postop. We will start the patient on Rocephin for urinary tract infection and adjust pending culture results. Bedrest until the patient hip is repaired. Plan was discussed with Dr. Walls, who agrees. Job ID: [id number] [facility]
--- NOTE | 2020-04-26 01:48 | CON ---
DATE OF CONSULTATION: 04/25/2020 CHIEF COMPLAINT: Left hip pain. HISTORY OF PRESENT ILLNESS: Ms. Gamble is an 84-year-old female who fell approximately 6 days ago. At that time, she did present to the emergency department; however, there were no complaints of hip pain. The patient is severely demented, so really could not report her own history. Her family was with her and reported that they did feel that she struck her head. A workup was completed and she was sent home. Unfortunately, she has continued to have problems acting differently. She has not walked since her fall. She has been having pain. She was brought back to the emergency department tonight. X-rays were obtained, which demonstrated a left femoral neck fracture. The patient has been given pain control. She is resting comfortably currently. 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 PAST SURGICAL HISTORY: Previous distal radial fracture surgery. PSYCHIATRIC HISTORY: Depression. SOCIAL HISTORY: The patient lives at home with family. She denies tobacco, alcohol, or drug use. ALLERGIES: NO KNOWN DRUG ALLERGIES. FAMILY MEDICAL HISTORY: Noncontributory. IMAGES: X-rays of the pelvis and left hip demonstrated displaced left femoral neck fracture with shortening and varus alignment. PHYSICAL EXAMINATION: VITAL SIGNS: The patient's blood pressure is 110/67, pulse is 85, respiratory rate 20, and temperature is 100.7. HEENT: The patient's head and neck appear to be atraumatic and normocephalic. RESPIRATORY: Breathing comfortably. ABDOMEN: Soft, nontender, and nondistended. The patient does not answer questions appropriately. MUSCULOSKELETAL: The left leg has shortening and external rotation. She has swelling about her hip. Her skin is otherwise intact. She has palpable dorsalis pedis pulse and warm and well-perfused foot. It is difficult to assess her neurologic status. IMPRESSION: Left femoral neck fracture, which is approximately 6 days old at this point. PLAN: The patient will be admitted by the General Surgery Trauma Service for medical care and medical optimization. We will need to have a discussion with the patient and her family if they would like us to proceed with surgical correction. It appears that the patient had been walking fairly normally until this recent fall, and so surgery is likely warranted. Best surgical option would be a bipolar hemiarthroplasty for her to restore the ability to mobilize and prevent complications of prolonged bed rest. She would be at elevated risk of complications given her dementia. We will plan for this tomorrow if the family again wants to proceed. She will have pain control, DVT prophylaxis, and antibiotics on-call to the operating room. Job ID: [id number]
[2020-04-26] MEDS: Acetaminophen 500 MG TAB PO SCH ×4 (05:20→18:16)
[2020-04-26 05:35] LABS: #Eosinphils 0.2 thou/uL (0.0-0.7); #Lymphocytes 0.8 thou/uL (1.20-3.40); #Neutrophils 6.3 thou/uL (1.40-6.50); %Basophils 0.3 % (0.0-1.0); %Eosinophils 1.8 % (0.0-10.0); %Lymphocytes 9.2 % (21.0-51.0); %Monocytes 12.5 % (0.0-10.0); %Neutrophils 76.2 % (42.0-75.0); Hemoglobin 12.7 g/dL (12.0-16.0); Mean Corpuscular HGB CONC 32.9 g/dL (32.0-36.0); Mean Corpuscular Hemoglobin 32.6 pg (27.0-31.0); Mean Corpuscular Volume 99.2 fL (78.0-98.0); Mean Platelet Volume 7.8 fL (7.4-10.4); Platelet Count 286 thou/uL (130-400); RBC Distribution Width 12.7 % (11.5-14.5); Red Blood Cell (RBC) Count 3.89 mill/uL (4.20-5.40); White Blood Cell (WBC) Count 8.3 thou/uL (4.8-10.8)
[2020-04-26 05:58] LABS: Phosphorus 2.9 mg/dL (2.3-4.7)
[2020-04-26 06:04] LABS: Anion Gap 12 mmol/L (10-20); BUN (Urea Nitrogen) 31 mg/dL (9.8-20.1); Calc. Creatinine Clearance 47 mL/min (70-130); Calcium 8.4 mg/dL (7.8-10.44); Carbon Dioxide 26 mmol/L (23-31); Chloride 103 mmol/L (98-107); Estimated GFR-MDRD Greater than 90; Glucose 106 mg/dL (83-110); Potassium 3.8 mmol/L (3.5-5.1); Sodium 137 mmol/L (136-145)
[2020-04-26] MEDS: Sodium Chloride 0.9% 1,000 ML IV SCH ×3 (07:15→18:16)
[2020-04-26] MEDS ORDERED: traMADol HCl 50 MG TAB PO PRN (07:20)
[2020-04-26] MEDS ORDERED: Morphine 2 MG/ML VIAL SLOW IVP PRN (07:20)
[2020-04-26] MEDS ORDERED: Potassium Phosphate 15 MMOL in Sodium Chloride 0.9% 250 ML 250 ML IVPB SCH (07:30)
[2020-04-26] MEDS ORDERED: Levothyroxine Sodium 50 MCG TAB PO SCH (07:45)
[2020-04-26] MEDS ORDERED: Rocuronium Bromide 10 MG/ML (10ML VIAL) ONE (09:37)
[2020-04-26] MEDS ORDERED: Dexamethasone 20 MG/5 ML VIAL ONE (09:37)
[2020-04-26] MEDS ORDERED: Lidocaine 1% PF 5 ML VIAL ONE (09:37)
[2020-04-26] MEDS ORDERED: PROPOFOL 200 MG/20 ML VIAL ONE (09:37)
[2020-04-26] MEDS ORDERED: Ondansetron PF 4 MG/2 ML Vial ONE (09:37)
[2020-04-26] MEDS ORDERED: Glycopyrrolate 0.2 MG/ML 5 ML SYRINGE ONE (09:37)
[2020-04-26] MEDS: traMADol HCl 50 MG TAB PO PRN (10:00)
[2020-04-26] MEDS: Polyethylene Glycol 3350 17 GM Packet PO SCH (10:21)
[2020-04-26] MEDS: Senokot S 8.6-50 MG TAB PO SCH ×2 (10:21→22:42)
[2020-04-26] MEDS ORDERED: CEFAZOLIN 2 GM in Premix Bag 1 BAG IVPB SCH (12:00)
[2020-04-26 12:29] LABS: SARS-CoV-2 MS2 Positive; SARS-CoV-2 N Gene Negative; SARS-CoV-2 S Gene Negative; SARS-CoV-2 by NAA Not Detected (NotDetected); SARS-CoV-2 orf1ab Negative
--- NOTE | 2020-04-26 14:41 | PRG ---
DATE OF SERVICE: 04/26/2020 SUBJECTIVE: The patient was seen this morning during rounds. She was lying in bed. She has a history of dementia and was quite confused, but she was not able to tell us exactly what she needed. We did give her pain medication at that time. She was able to follow simple commands and she was awake and alert. OBJECTIVE: VITAL SIGNS: Temperature 99.8, pulse 59, respirations 14, oxygen saturation 94% on room air, blood pressure 128/71. GENERAL: Elderly female, lying in bed with no signs of acute distress. PULMONARY: Equal chest rise and fall. No signs of acute respiratory distress. CARDIAC: Regular rate and rhythm. GI: Abdomen is soft, nontender, nondistended. EXTREMITIES: 2+ pulses in all extremities. Left lower extremity is shortened. No signs of significant swelling. NEUROLOGIC: GCS is 13, -2 for verbal. LABORATORY FINDINGS: White count 8.3, hemoglobin 12.9, hematocrit 38.6, platelets 283. Sodium 137, potassium 3.8, chloride 103, bicarb 26, BUN 31, creatinine 0.61, glucose 106, phosphorus 2.9, magnesium 2.0. DIAGNOSTIC FINDINGS: There are no new diagnostic findings to report. ASSESSMENT: 1. Status post fall 6 days before presentation. 2. Left femoral neck fracture. 3. Urinary tract infection. 4. History of dementia, hypothyroidism, frequent urinary tract infection, and depression. PLAN: Continue n.p.o. with normal saline at 100 an hour. She is going to the OR today with Dr. Veras for fixation of her left femoral neck fracture. Postoperatively, she will work with Physical and Occupational Therapy and likely need placement in an acute rehab facility versus SNF. She will receive Rocephin for 3 days for urinary tract infection. Culture has been sent and we will await further information on sensitivities. The patient has a history of UTIs and received Rocephin on her most recent admission for urinary tract infection. This patient was seen and evaluated by Dr. Oakley and myself this morning during rounds. Job ID: [id number]
[2020-04-26] MEDS ORDERED: Meperidine HCl/PF 25 MG/ML VIAL SLOW IVP PRN (15:21)
[2020-04-26] MEDS ORDERED: Promethazine HCl 25 MG/ML VIAL SLOW IVP PRN ×2 (15:21→19:13)
[2020-04-26] MEDS ORDERED: Ondansetron HCl/PF 4 MG/2 ML Vial IVP PRN ×2 (15:21→19:13)
[2020-04-26] MEDS ORDERED: Promethazine HCl 25 MG/ML VIAL IM PRN ×2 (15:21→19:13)
[2020-04-26] MEDS ORDERED: Phenylephrine 10 MG/ML VIAL ONE (17:23)
[2020-04-26] MEDS ORDERED: Fentanyl 100 MCG/2 ML VIAL ONE ×2 (17:23→19:38)
[2020-04-26] MEDS ORDERED: Labetalol HCl 100 MG/20 ML VIAL ONE (19:19)
--- NOTE | 2020-04-26 20:20 | RAD ---
1 VIEW PELVIS: Date: 04/26/2020 HISTORY: Postoperative evaluation. COMPARISON: 04/25/2020. FINDINGS: There have been interval postsurgical changes related to placement of left total hip prosthesis. No h ardware complication is seen. Skin clips are seen overlying lateral left hip and subcutaneous emphyse ma seen. No other interval change. IMPRESSION: Interval postoperative changes related to left total hip prosthesis. POS: KENNY
--- NOTE | 2020-04-26 20:21 | RAD ---
2 VIEWS LEFT HIP: Date: 04/26/2020 HISTORY: Postoperative evaluation of left total hip prosthesis. COMPARISON: 04/25/2020. FINDINGS: There have been interval postoperative changes related to placement of left total hip prosthesis. No hardware complication is seen. Skin clips are seen lateral to the left hip with subcutaneous emphysem a also seen. No fracture or dislocation is identified. No other findings. IMPRESSION: Postoperative changes related to recent left total hip prosthesis. POS: KENNY
[2020-04-26] MEDS: CEFAZOLIN 2 GM in Premix Bag 1 BAG IVPB SCH (22:32)
[2020-04-26] MEDS: Famotidine/PF 20 mg/2ml Vial SLOW IVP SCH (22:33)
[2020-04-26] MEDS: Donepezil HCl 10 MG TAB PO SCH (22:43)
[2020-04-26] MEDS: risperiDONE 0.25 MG TAB PO SCH (22:43)
--- NOTE | 2020-04-26 23:01 | PRG ---
DATE OF SERVICE: 04/26/2020 SUBJECTIVE: The patient was seen during evening rounds, resting comfortably in no acute distress. The patient is postop day 0, status post repair of her left femoral neck fracture. OBJECTIVE: VITAL SIGNS: The patient's vitals are stable and temperature is 99.1. Urinary output is adequate for the patient's age and weight. PLAN: Regular diet as tolerated. Continue physical and occupational therapy. Pain regimen. Preliminary urinary culture shows no growth currently. We will continue to watch for final results. We will repeat labs in the morning to ensure the patient's hemoglobin and hematocrit are stable; if the patient's H and H are stable, we will start the patient on chemical VTE prophylaxis. Job ID: [id number]
[2020-04-27] MEDS: Acetaminophen 500 MG TAB PO SCH ×4 (00:15→18:10)
--- NOTE | 2020-04-27 01:07 | OP ---
DATE OF PROCEDURE: 04/26/2020 PREOPERATIVE DIAGNOSIS: Left femoral neck fracture. POSTOPERATIVE DIAGNOSIS: Left femoral neck fracture. PROCEDURE PERFORMED: Left hip hemiarthroplasty. ANESTHESIA: General. BON[employer] CRE[employer] WARMER: Rahul Dalton PA-C IMPLANTS: DePuy [place] size 4 femoral stem cemented with a 28 x 47 bipolar cup and a +1.5 head. Simplex cement was used. ESTIMATED BLOOD LOSS: 200 mL. COMPLICATIONS: None. DRAINS: None. SPECIMEN: None. OUTCOME: Satisfactory. INDICATIONS FOR PROCEDURE: The patient is an 84-year-old lady with severe dementia, who is status post ground level fall, sustaining a displaced left femoral neck fracture. After discussion with the patient's daughter including risks and benefits, we have decided to proceed with hemiarthroplasty. Informed consent has been obtained. I believe all questions have been answered. DESCRIPTION OF PROCEDURE: The patient was brought to the operating room and a time-out performed, followed by induction of general anesthesia. The patient was positioned in the right lateral decubitus position and a sterile prep and drape were performed in the left lower extremity. A curvilinear incision was made centered over the tip of the greater trochanter. After skin was sharply incised, dissection was carried down through the subcutaneous fat to the level of the tensor fascia and fascia jason. This structure was incised in line with skin incision, reflected posteriorly and anteriorly, exposing the trochanteric bursa. The bursa was swept posteriorly off the short external rotators. An elevator was placed under the abductor, exposing the piriformis, superior and inferior gemelli. These tendons were taken off the posterior aspect of the femur, tagged and reflected posteriorly, revealing the underlying joint capsule. A T-capsulotomy was then performed with leaflets tagged for eventual repair. A corkscrew device was used to remove the femoral head. An oscillating saw was used to make a femoral neck cut. There was a little bit of comminution along the posterior aspect of the cut and as such, it was opted to proceed with a cemented stem. A T-handle awl was used to obtain a starting point in the canal followed by lateralizing reamer. Progressive T-handle awls were then passed down the canal up to a size 4. Broaching was started at size 2 and continued up to size 4, they gave good fit and fill proximally. Sizing of the femoral head showed that 47 mm head would be appropriate size for the implant. 3 L normal saline with Pulsavac was lavaged through the wound including the femoral canal and then a cement restrictor was placed in the femur. Cement was mixed and then injected into the femoral canal. The stem was then seated firmly into the canal and then excess cement removed. Once the cement had fully cured, the bipolar head was applied to the stem and then the hip reduced. It was found to be quite stable. The leaflets of the capsule were then reapproximated with #2 Vicryl, followed by #2 Vicryl to repair the short external rotators back to the posterior aspect of the femur. This was then followed by #2 Vicryl for the tensor fascia and fascia jason, followed by 0 Vicryl for [place] fascia, 2-0 Vicryl subcutaneously and then rogelio for the skin. Xeroform gauze and tape dressing were then applied to the hip. It should be noted that prior to implanting of the final stem, the trial broach was left in place and a trial reduction performed to get appropriate length for the femoral neck. There were no complications. The patient tolerated the procedure well. Job ID: [id number]
[2020-04-27] MEDS: cefTRIAXone\\ROCEPHIN 1 GM in Sodium Chloride 0.9% 100 ML IVPB SCH (02:25)
[2020-04-27] MEDS: Sodium Chloride 0.9% 1,000 ML IV SCH ×3 (04:49→14:49)
[2020-04-27 04:57] LABS: #Lymphocytes 0.5 thou/uL (1.20-3.40); #Monocytes 0.9 thou/uL (0.11-0.59); #Neutrophils 8.8 thou/uL (1.40-6.50); %Eosinophils 0.2 % (0.0-10.0); %Lymphocytes 4.8 % (21.0-51.0); %Monocytes 8.5 % (0.0-10.0); %Neutrophils 86.6 % (42.0-75.0); Hemoglobin 11.3 g/dL (12.0-16.0); Mean Corpuscular HGB CONC 32.9 g/dL (32.0-36.0); Mean Corpuscular Hemoglobin 32.6 pg (27.0-31.0); Mean Corpuscular Volume 98.8 fL (78.0-98.0); Mean Platelet Volume 7.7 fL (7.4-10.4); Platelet Count 287 thou/uL (130-400); RBC Distribution Width 12.5 % (11.5-14.5); Red Blood Cell (RBC) Count 3.47 mill/uL (4.20-5.40); White Blood Cell (WBC) Count 10.1 thou/uL (4.8-10.8)
[2020-04-27 05:35] LABS: Anion Gap 13 mmol/L (10-20); BUN (Urea Nitrogen) 18 mg/dL (9.8-20.1); Calc. Creatinine Clearance 50 mL/min (70-130); Calcium 8.1 mg/dL (7.8-10.44); Carbon Dioxide 24 mmol/L (23-31); Chloride 101 mmol/L (98-107); Estimated GFR-MDRD Greater than 90; Glucose 126 mg/dL (83-110); Magnesium 1.7 mg/dL (1.6-2.6); Phosphorus 3.4 mg/dL (2.3-4.7); Potassium 4.5 mmol/L (3.5-5.1); Sodium 133 mmol/L (136-145)
[2020-04-27] MEDS: Levothyroxine Sodium 50 MCG TAB PO SCH (06:14)
[2020-04-27] MEDS: CEFAZOLIN 2 GM in Premix Bag 1 BAG IVPB SCH ×2 (06:14→14:50)
[2020-04-27] MEDS: Polyethylene Glycol 3350 17 GM Packet PO SCH (09:45)
[2020-04-27] MEDS: Aspirin 81 mg Enteric Coated Tablet PO SCH ×2 (09:45→21:00)
[2020-04-27] MEDS: Senokot S 8.6-50 MG TAB PO SCH ×2 (09:45→21:00)
[2020-04-27] MEDS: Famotidine/PF 20 mg/2ml Vial SLOW IVP SCH ×2 (09:46→21:00)
--- NOTE | 2020-04-27 20:01 | PRG ---
DATE OF SERVICE: 04/27/2020 SUBJECTIVE: The patient remains on the surgical floor. She is status post delayed presentation after a fall in which she sustained a left femoral neck fracture. She has undergone operative repair of that and she is awaiting placement decision. There are no reported issues overnight. The patient was tolerating a diet. PHYSICAL EXAMINATION: VITAL SIGNS: Temperature 97.6, heart rate 67, blood pressure 121/58, respirations 14, oxygen saturation 99% on room air. GENERAL: The patient is resting comfortably in bed. She appears in no distress. She would answer very simple questions and followed simple commands. RESPIRATIONS: Appear nonlabored, in no distress. ABDOMEN: Nondistended. EXTREMITIES: Neurovascularly intact grossly as she is moving all 4 extremities. Capillary refill is less than 3 seconds. LABORATORY FINDINGS: White blood cell count 10.1, hemoglobin 11.3, hematocrit 34.3, platelets 287. Sodium 133, potassium 4.5, chloride 101, CO2 of 24, BUN 18, creatinine 0.58, glucose 126, magnesium 1.7, phosphorus 3.4. There are no radiographs reviewed this morning. ASSESSMENT: 1. Status post delayed presentation of ground level fall. 2. Status post left hip hemiarthroplasty. 3. Urinary tract infection, urine culture was unremarkable. 4. History of dementia, hypothyroidism, frequent urinary tract infections, and depression. PLAN: Will be to continue supportive care. Encourage physical and occupational therapy and await placement decision. The patient was evaluated this morning with Dr. Oakley during rounds. Job ID: [id number]
[2020-04-27] MEDS: risperiDONE 0.25 MG TAB PO SCH (20:59)
[2020-04-27] MEDS: Donepezil HCl 10 MG TAB PO SCH (21:00)
[2020-04-28] MEDS: Sodium Chloride 0.9% 1,000 ML IV SCH (00:50)
[2020-04-28] MEDS: cefTRIAXone\\ROCEPHIN 1 GM in Sodium Chloride 0.9% 100 ML IVPB SCH (01:08)
[2020-04-28] MEDS: Acetaminophen 500 MG TAB PO SCH ×5 (01:08→23:22)
[2020-04-28] MEDS: Levothyroxine Sodium 50 MCG TAB PO SCH (05:20)
[2020-04-28 05:30] LABS: #Eosinphils 0.1 thou/uL (0.0-0.7); #Lymphocytes 0.7 thou/uL (1.20-3.40); #Monocytes 0.8 thou/uL (0.11-0.59); #Neutrophils 5.7 thou/uL (1.40-6.50); %Basophils 0.3 % (0.0-1.0); %Eosinophils 1.1 % (0.0-10.0); %Lymphocytes 9.1 % (21.0-51.0); %Monocytes 11.3 % (0.0-10.0); %Neutrophils 78.1 % (42.0-75.0); Hemoglobin 10.6 g/dL (12.0-16.0); Mean Corpuscular HGB CONC 32.6 g/dL (32.0-36.0); Mean Corpuscular Hemoglobin 32.3 pg (27.0-31.0); Mean Corpuscular Volume 98.9 fL (78.0-98.0); Mean Platelet Volume 7.6 fL (7.4-10.4); Platelet Count 293 thou/uL (130-400); RBC Distribution Width 12.5 % (11.5-14.5); Red Blood Cell (RBC) Count 3.28 mill/uL (4.20-5.40); White Blood Cell (WBC) Count 7.3 thou/uL (4.8-10.8)
[2020-04-28 05:49] LABS: Anion Gap 10 mmol/L (10-20); BUN (Urea Nitrogen) 13 mg/dL (9.8-20.1); Calc. Creatinine Clearance 49 mL/min (70-130); Carbon Dioxide 30 mmol/L (23-31); Chloride 103 mmol/L (98-107); Estimated GFR-MDRD Greater than 90; Glucose 99 mg/dL (83-110); Phosphorus 2.6 mg/dL (2.3-4.7); Potassium 3.9 mmol/L (3.5-5.1); Sodium 139 mmol/L (136-145)
[2020-04-28] MEDS: Polyethylene Glycol 3350 17 GM Packet PO SCH (09:10)
[2020-04-28] MEDS: Famotidine/PF 20 mg/2ml Vial SLOW IVP SCH (09:11)
[2020-04-28] MEDS: Aspirin 81 mg Enteric Coated Tablet PO SCH ×2 (09:11→21:29)
[2020-04-28] MEDS: Senokot S 8.6-50 MG TAB PO SCH ×2 (09:11→21:30)
[2020-04-28] MEDS: Famotidine 20 MG TAB PO SCH ×2 (10:04→21:29)
--- NOTE | 2020-04-28 16:41 | PRG ---
DATE OF SERVICE: SUBJECTIVE: The patient was seen during morning rounds, awake, alert, in no distress. The patient is more alert and talkative than she was a couple of days ago. When asked in pain, the patient is able to voice no. The patient had no overnight events. She is postop day #2, status post repair of her left femoral neck fracture with left hemiarthroplasty. The patient's urinary output is adequate for age and weight. The patient is tolerating a regular diet. OBJECTIVE: VITAL SIGNS: Temperature 98.2, pulse 58, respirations 16, SpO2 of 100% on room air, blood pressure 123/54. GENERAL: Severely demented elderly female, awake, alert, no distress. RESPIRATORY: Good inspiratory and expiratory effort, respirations nonlabored. CARDIAC: Bradycardic, regular. ABDOMEN: Soft, nontender, nondistended. EXTREMITIES: Moves all extremities, neurovascularly intact x4. Left hip dressing is clean, dry, and intact. LABORATORY DATA: WBC 7.3, RBC 3.28, hemoglobin 10.6, hematocrit 32.5, platelets 293. Sodium 139, potassium 3.9, chloride 103, BUN 13, creatinine 0.59, glucose 99, calcium 8.0, phosphorus 2.6, magnesium 2.0. Final urine culture shows no bacteria, normal urogenital tarah present. IMPRESSION: 1. Status post delayed presentation of ground level fall. 2. Status post left hip hemiarthroplasty. 3. Urinary tract infection, negative urine culture. 4. Cachexia. 5. History of dementia, hypothyroidism, frequent urinary tract infections, and depression. PLAN: Continue supportive care. Encourage Physical and Occupational Therapy. Pain management. Case Management has reached out multiple times to patient's family to obtain placement decision. Case Management will continue to reach out. The patient is from home and lives with family, but will require rehab or intermediate. The plan was discussed with Dr. Oakley who agrees. We will continue aspirin for VTE prophylaxis. We will repeat labs in the morning to ensure the patient's hemoglobin and hematocrit are stable. Job ID: [id number] [facility]TD[facility]
[2020-04-28] MEDS: Donepezil HCl 10 MG TAB PO SCH (21:29)
[2020-04-28] MEDS: risperiDONE 0.25 MG TAB PO SCH (21:29)
[2020-04-29] MEDS: traMADol HCl 50 MG TAB PO PRN (02:28)
[2020-04-29 05:20] LABS: #Eosinphils 0.2 thou/uL (0.0-0.7); #Lymphocytes 0.8 thou/uL (1.20-3.40); #Monocytes 0.7 thou/uL (0.11-0.59); #Neutrophils 5.3 thou/uL (1.40-6.50); %Basophils 0.6 % (0.0-1.0); %Eosinophils 2.5 % (0.0-10.0); %Monocytes 9.4 % (0.0-10.0); %Neutrophils 76.5 % (42.0-75.0); Hemoglobin 10.8 g/dL (12.0-16.0); Mean Corpuscular HGB CONC 32.6 g/dL (32.0-36.0); Mean Corpuscular Hemoglobin 32.5 pg (27.0-31.0); Mean Corpuscular Volume 99.5 fL (78.0-98.0); Mean Platelet Volume 7.2 fL (7.4-10.4); Platelet Count 336 thou/uL (130-400); RBC Distribution Width 12.5 % (11.5-14.5); Red Blood Cell (RBC) Count 3.33 mill/uL (4.20-5.40)
[2020-04-29] MEDS: Levothyroxine Sodium 50 MCG TAB PO SCH (05:34)
[2020-04-29] MEDS: Acetaminophen 500 MG TAB PO SCH ×2 (05:34→13:17)
[2020-04-29 05:44] LABS: Anion Gap 11 mmol/L (10-20); BUN (Urea Nitrogen) 13 mg/dL (9.8-20.1); Calc. Creatinine Clearance 52 mL/min (70-130); Calcium 8.4 mg/dL (7.8-10.44); Carbon Dioxide 29 mmol/L (23-31); Chloride 104 mmol/L (98-107); Estimated GFR-MDRD Greater than 90; Glucose 99 mg/dL (83-110); Magnesium 2.1 mg/dL (1.6-2.6); Phosphorus 2.9 mg/dL (2.3-4.7); Potassium 3.8 mmol/L (3.5-5.1); Sodium 140 mmol/L (136-145)
[2020-04-29] MEDS: Aspirin 81 mg Enteric Coated Tablet PO SCH ×2 (08:35→20:37)
[2020-04-29] MEDS: Senokot S 8.6-50 MG TAB PO SCH ×2 (08:35→20:38)
[2020-04-29] MEDS: Famotidine 20 MG TAB PO SCH ×2 (08:35→20:37)
[2020-04-29] MEDS: Polyethylene Glycol 3350 17 GM Packet PO SCH (08:51)
--- NOTE | 2020-04-29 14:31 | PQF ---
CLINICAL DOCUMENTATION CLARIFICATION FORM: *[facility] Patient INFO Dear Antonino Ferris AGACNP-BC Date: 04/29/20 Please exercise your independent, professional judgment in responding to the clarification form. Clinical indicators are provided on the bottom of this form for your review. Please check appropriate box(es): [x ] Protein Calorie Malnutrition: [ ] Mild [ ] Moderate [ x ] Severe [ ] Other Malnutrition (please specify) __ [ ] Underweight without malnutrition [ x ] Cachexia [ ] Other diagnosis ____dementia [ ] Unable to determine In addition, please specify: Present on Admission (POA): [ x ] Yes [ ] No [ ] Unable to determine For continuity of documentation, please document condition throughout progress notes and discharge summary. Thank You. DIETARY NOTE 04/27: "2-13 LB WEIGHT LOSS, POOR APPETITE; MODERATE TO SEVERE MUSCLE WASTING PRESENT" "MODERATE MUSCLE WASTING TO TRAPEZIUS AND PECTORALIS." "16% WEIGHT LOSS IN 3 MONTHS" BMI 17.3 RISKS: ADVANCED AGE DEMENTIA (DIETARY NOTE 04/27) STAGE 2 SACROCOCCYGEAL PRESSURE ULCER TREATMENT: DIETARY CONSULT 04/27 RECOMMENDATION OF DIETARY SUPPLEMENTS (DIETARY ASSESSMENT 04/27) Moderate Malnutrition (in acute illness) Energy Intake: <75% of estimated energy requirement for > 7 days Weight Loss: 1-2%/1 week; 5%/ 1 month; 7.5%/3 months Other: mild body fat loss; mild muscle mass loss; mild fluid accumulation; Severe Malnutrition (in acute illness) Energy Intake: = 50% of estimated energy requirement for = 5 days Weight Loss: >2%/1 week; >5%/1 month; >7.5%/3 months Other: moderate body fat loss; moderate muscle mass loss; moderate- severe fluid accumulation; measurably reduced vessel builder strength Moderate Malnutrition (in chronic illness) Energy Intake: <75% of estimated energy requirement for =1 month Weight Loss: 5%/1 month; 7.5%/3 months; 10%/6 months; 20%/1 year Other: mild body fat loss; mild muscle mass loss; mild fluid accumulation Severe Malnutrition (in chronic illness) Energy Intake: =75% of estimated energy requirement for =1 month Weight Loss: >5%/1 month; >7.5%/3 months; >10%/6 months; >20%/1 year Other: severe body fat loss; severe muscle mass loss; severe fluid accumulation; measurably reduced vessel builder strength CDS Signature: Aislinn Allen RN Phone #: [phone] Date: 04/29/20 This is a permanent part of the Medical Record [facility]
[2020-04-29] MEDS ORDERED: traMADol HCl 50 MG TAB PO PRN (14:41)
--- NOTE | 2020-04-29 15:38 | PRG ---
DATE OF SERVICE: 04/29/2020 SUBJECTIVE: The patient was seen during morning rounds, sleeping, in no distress. The patient was given tramadol at approximately 2 o'clock this morning and has been asleep ever since. The patient is arousable, but falls back asleep easily. The patient had no overnight events. The patient is postop day #3, status post left femoral neck fracture. OBJECTIVE: VITAL SIGNS: Blood pressure 117/44, pulse 53, respirations 18, temperature 98.4, and SpO2 of 98% on room air. GENERAL: Elderly female, in no distress, sleeping. HEENT: Head is atraumatic and normocephalic. RESPIRATORY: Respirations are even and nonlabored. Breath sounds clear. CARDIAC: Bradycardic, regular rate. EXTREMITIES: Moves all extremities. NEUROLOGIC: No focal deficits. LABORATORY DATA: WBC 7.0, RBC 3.33, hemoglobin 10.8, hematocrit 33.1, and platelets 336. Sodium 140, potassium 3.8, chloride 104, BUN 13, creatinine 0.56, estimated GFR greater than 90, glucose 99, calcium 8.4, phosphorus 2.9, and magnesium 2.1. DIAGNOSTICS: There is no new diagnostics to review today. ASSESSMENT: 1. Status post delayed presentation of ground level fall. 2. Status post left hip hemiarthroplasty. 3. Urinary tract infection, negative urine culture. 4. History of dementia. 5. Hypothyroidism. 6. Frequent urinary tract infections. 7. Depression. PLAN: Continue supportive care. We will decrease the patient's tramadol and unscheduled as the patient has been sleepy since last given. Encourage physical and occupational therapy. The family has requested the patient go to inpatient rehab and the patient is denied acceptance. Family wants the patient to go home. We will wait to see if rehab accept the patient. Continue aspirin for VTE prophylaxis. The plan was discussed with the attending, who agrees. Job ID: [id number]
[2020-04-29] MEDS: Donepezil HCl 10 MG TAB PO SCH (20:38)
[2020-04-29] MEDS: risperiDONE 0.25 MG TAB PO SCH (20:38)
[2020-04-29] MEDS ORDERED: traMADol HCl 50 MG TAB PO SCH (21:00)
[2020-04-30] MEDS: Levothyroxine Sodium 50 MCG TAB PO SCH (06:15)
[2020-04-30] MEDS: Polyethylene Glycol 3350 17 GM Packet PO SCH (10:40)
[2020-04-30] MEDS: Senokot S 8.6-50 MG TAB PO SCH (10:40)
[2020-04-30] MEDS: Aspirin 81 mg Enteric Coated Tablet PO SCH (10:40)
[2020-04-30] MEDS: Acetaminophen 500 MG TAB PO SCH (13:01)
[2020-04-30 13:19] VITALS: BP 121/74; TEMP 98
--- NOTE | 2020-05-01 03:35 | DIS ---
DATE OF ADMISSION: 04/25/2020 DATE OF DISCHARGE: 04/30/2020 This is Goldy Mcknight PA-C dictating a report for Thomas Oakley DO. ADMITTING PHYSICIAN: Mak Walls MD DISCHARGING PHYSICIAN: Thomas Oakley MD. RESIDENT: Goldy Mcknight PA-C. CONSULTING PHYSICIANS: 1. Dr. Ángel Ivy. 2. Dr. Vince Veras. ADMITTING DIAGNOSES: 1. Left femoral neck fracture. 2. Urinary tract infection. 3. Cachexia. 4. History of dementia. 5. Depression. 6. Hypothyroidism. 7. Mechanical fall. DISCHARGE DIAGNOSES: 1. Left femoral neck fracture. 2. Urinary tract infection. 3. Cachexia. 4. History of dementia. 5. Depression. 6. Hypothyroidism. 7. Mechanical fall. 8. Left femoral neck fracture. 9. Status post open reduction internal fixation of the left femoral neck fracture. 10. Urinary tract infection. 11. Cachexia. 12. History of dementia. 13. Depression. 14. Hypothyroidism. 15. Mechanical fall. PROCEDURE PERFORMED: ORIF of the left femoral neck fracture. DISCHARGE MEDICATIONS: 1. Tylenol 100 mg every 6 hours. 2. Aspirin 81 mg b.i.d. 3. Flexeril as needed. 4. Aricept 10 mg nightly. 5. Synthroid daily. 6. Namenda 10 mg b.i.d. 7. MiraLAX as needed. 8. Risperidone decreased to 0.5 mg nightly. 9. Tramadol 50 mg every 12 hours as needed. PHYSICAL EXAMINATION: VITAL SIGNS: Temperature is 98.0, blood pressure 121/74, heart rate of 65, breathing 20 times per minute, 95% on room air. GENERAL: Confused female, sitting up, nontoxic. HEENT: Normocephalic, atraumatic. RESPIRATORY: Equal rise and fall. Lung sounds bilaterally. CARDIOVASCULAR: Regular rate and rhythm. She has a soft abdomen. EXTREMITIES: She has good circulation in distal extremities. Surgical incision is noted dry. NEUROLOGIC: Confused at the patient's baseline. SKIN: Warm and dry. LABORATORY DATA: No laboratory data to review today. PLAN: [facility]. MEDICATIONS: As noted above. HOSPITAL COURSE: The patient was moved to trauma service. Orthopedics was consulted. Taken to the OR for operative repair. Patient remained stable. She has had one bowel movement documented. Since hospitalization, she is voiding. Pain seems to be controlled. PT was consulted. The patient is being discharged to [facility] for further management. Greater than 30 minutes was taken in discharge planning of this patient. Job ID: [id number]
--- NOTE | 2020-05-05 16:03 | EKG ---
Test Reason : Blood Pressure : / mmHG Vent. Rate : 089 BPM Atrial Rate : 089 BPM P-R Int : 166 ms QRS Dur : 104 ms QT Int : 362 ms P-R-T Axes : 075 -55 089 degrees QTc Int : 440 ms Normal sinus rhythm with sinus arrhythmia Incomplete right bundle branch block Left anterior fascicular block Left ventricular hypertrophy with repolarization abnormality Cannot rule out Septal infarct , age undetermined Abnormal ECG Confirmed by DAI SPENCE ([id number]), news assignment editor SHAUN KO ([id number]) on 05/05/2020 4:03:12 PM Referred By: Confirmed By:DAI Nj
== END 2020-04-30 14:44 | DRG 469 ==
LOC: ERS 18:01 → SURG A 20:59 → SJJU 04-27 11:02 → SURG A 04-27 11:08
PROVIDERS: ADMIT Surgery; ATTEND Surgery
PROC: 0SRS0J9 Replacement of Left Hip Joint, Femoral Surface with Synthetic Substitute, Cemented, Open Approach (ICD-10-PCS; principal; 2020-04-26)
DX: S72.012A Unspecified intracapsular fracture of left femur, initial encounter for closed fracture (principal); E43 Unspecified severe protein-calorie malnutrition; N39.0 Urinary tract infection, site not specified; R64 Cachexia; Z68.1 Body mass index [BMI] 19.9 or less, adult; F03.90 Unspecified dementia, unspecified severity, without behavioral disturbance, psychotic disturbance, mood disturbance, and anxiety; F32.9 Major depressive disorder, single episode, unspecified; E03.9 Hypothyroidism, unspecified; H91.3 Deaf nonspeaking, not elsewhere classified; W18.30XA Fall on same level, unspecified, initial encounter; Z87.440 Personal history of urinary (tract) infections; Z79.899 Other long term (current) drug therapy; Z79.890 Hormone replacement therapy; Z20.828 Contact with and (suspected) exposure to other viral communicable diseases
CPT/HCPCS: 36415; 51701; 72170; 80048; 80053; 81003; 81015; 82550; 83735; 84100; 84484; 85025; 87086; 87635; 93005; C1713; C1776; C1781; G0390; J0690; J0696; J1100; J2370; J2405; J2704; J2710; J3010; J3490; J7050; S0028; U0003

== ENCOUNTER 2020-09-19 11:43 | Inpatient (IN) | payer MEDICARE, BC ==
[2020-09-19] MEDS ORDERED: Ondansetron PF 4 MG/2 ML Vial ONE (12:07)
[2020-09-19] MEDS ORDERED: Glycopyrrolate 0.2 MG/ML 5 ML SYRINGE ONE (12:07)
[2020-09-19] MEDS ORDERED: Ketorolac Tromethamine 30 MG/ML VIAL ONE (12:07)
[2020-09-19] MEDS ORDERED: ePHEDrine 50 MG/ML VIAL ONE (12:07)
[2020-09-19] MEDS ORDERED: Dexamethasone 20 MG/5 ML VIAL ONE (12:07)
[2020-09-19] MEDS ORDERED: PROPOFOL 200 MG/20 ML VIAL ONE (12:07)
[2020-09-19] MEDS ORDERED: Rocuronium Bromide 10 MG/ML (10ML VIAL) ONE (12:07)
[2020-09-19] MEDS ORDERED: Fentanyl 100 MCG/2 ML VIAL ONE ×2 (12:24→16:46)
--- NOTE | 2020-09-19 12:36 | RAD ---
RADIOGRAPH CHEST 1 VIEW: DATE: 09/19/2020 HISTORY: 84-year-old female status post acute chest trauma from fall FINDINGS: There are no airspace densities, pulmonary edema, pneumothorax, or cardiomegaly. The lateral costophr enic angles are sharp. IMPRESSION: No acute cardiopulmonary findings.
--- NOTE | 2020-09-19 12:40 | RAD ---
Radiograph right femur 2 views: 09/19/2020 12:19 PM HISTORY: 84-year-old female with acute traumatic right lower extremity pain from fall FINDINGS: There is focal angulation at the inferomedial subcapital region of the proximal femur. The crosstable lateral view demonstrates mild dorsal angulation of the femoral diaphysis relative to the femoral neck. This is difficult to appreciate on the AP view. No fracture of the femoral diaphysis or femoral condyles identified. Diffuse osteopenia. IMPRESSION: 1.) Acute, traumatic, right proximal femoral fracture with mild angulation, either intertrochanteric or basicervical. 2) acute, traumatic, mildly impacted subcapital right femoral neck fracture.
--- NOTE | 2020-09-19 12:41 | RAD ---
Radiograph right knee 2 views: 09/19/2020 12:16 PM HISTORY: Acute, traumatic right knee pain due to fall FINDINGS: The sensitivity for the detection of mildly displaced and nondisplaced fractures is decreased, [email or web address] byers this is only a 2 view study. No displaced fracture is identified. No dislocation. Minimal joint effusion. Severe DJD at medial compartment. Moderate DJD at patellofemoral compartment. IMPRESSION: 1. No fracture identified. 2. High-grade osteoarthrosis
[2020-09-19 12:49] LABS: #Eosinphils 0.1 thou/uL (0.0-0.7); #Lymphocytes 0.9 thou/uL (1.20-3.40); #Monocytes 0.8 thou/uL (0.11-0.59); #Neutrophils 6.2 thou/uL (1.40-6.50); %Basophils 0.3 % (0.0-1.0); %Eosinophils 1.1 % (0.0-10.0); %Lymphocytes 11.8 % (21.0-51.0); %Monocytes 9.6 % (0.0-10.0); %Neutrophils 77.3 % (42.0-75.0); Hemoglobin 13.2 g/dL (12.0-16.0); Mean Corpuscular HGB CONC 33.4 g/dL (32.0-36.0); Mean Corpuscular Hemoglobin 32.8 pg (27.0-31.0); Mean Corpuscular Volume 98.3 fL (78.0-98.0); Mean Platelet Volume 7.9 fL (7.4-10.4); Platelet Count 243 thou/uL (130-400); RBC Distribution Width 13.7 % (11.5-14.5); Red Blood Cell (RBC) Count 4.03 mill/uL (4.20-5.40)
--- NOTE | 2020-09-19 12:50 | CT ---
CT BRAIN NONCONTRAST: DATE: 09/19/2020 HISTORY: 84-year-old female status post acute head trauma from fall. COMPARISON: 04/20/2020 FINDINGS: There is no evidence of acute intra-axial or extra-axial hemorrhage. There is no midline shift or any other mass effect. There is no extra-axial fluid collection. There is ventriculomegaly due to central brain parenchymal volume loss. There is no evidence of obstructive hydrocephalus. Calvarium i s intact. There is diffuse brain parenchymal volume loss. There is a small focus of encephalomalacia and gliosis at the posterior aspect of the right superior frontal gyrus extending in to the medial aspect of the right precentral gyrus (motor cortex). There is a left mastoidectomy defect with intact canal wall between the EAC and the mastoidectomy defect. The mastoidectomy bowl an d bilateral tympanomastoid cavities, and visualized nasal sinuses, are grossly clear. No significant interval change. IMPRESSION: 1) No acute intracranial findings. 2) involutional changes of the brain. 3) status post canal wall up left mastoidectomy. 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
[2020-09-19 12:56] LABS: Prothrombin Time 13.2 sec (12.0-14.7)
[2020-09-19 13:18] LABS: ALT (SGPT) 15 U/L (8-55); AST (SGOT) 19 U/L (5-34); Albumin 3.7 g/dL (3.4-4.8); Alkaline Phosphatase 60 U/L (40-110); Anion Gap 15 mmol/L (10-20); BUN (Urea Nitrogen) 27 mg/dL (9.8-20.1); Bilirubin, Total 0.4 mg/dL (0.2-1.2); Calc. Creatinine Clearance 0 mL/min (70-130); Calcium 8.6 mg/dL (7.8-10.44); Carbon Dioxide 25 mmol/L (23-31); Chloride 108 mmol/L (98-107); Globulin 2.7 g/dL (2.4-3.5); Glucose 119 mg/dL (83-110); Protein, Total 6.4 g/dL (6.0-8.3); Sodium 144 mmol/L (136-145)
--- NOTE | 2020-09-19 13:19 | RAD ---
RIGHT HIP 2 VIEWS: Date: 09/19/2020 HISTORY: Fall with injury. FINDINGS: There is a mildly displaced intertrochanteric fracture of the right hip. Visualized pelvis appears intact. IMPRESSION: Right hip fracture. POS: AGW
--- NOTE | 2020-09-19 13:23 | CT ---
CT CERVICAL SPINE WITHOUT CONTRAST: Date: 09/19/2020 INDICATION: Fall with injury to head and neck. Comparison made to CT cervical spine dated 12/02/2019. FINDINGS: Cervical vertebra maintain height. Degenerative changes are noted with loss of disc space, degenerati ve spurring, and posterior spondylosis. Anterolisthesis at the C4-5 level is stable from the prior ex am. Facet hypertrophy is prominent. No evidence of fracture identified. Right foraminal stenosis at C 3-4 due to uncinate and facet hypertrophy. Right foraminal stenosis at C4-5. IMPRESSION: Degenerative changes of cervical spine again noted, stable from prior exam. No fracture or acute abno rmality. POS: AGW
[2020-09-19] MEDS ORDERED: CEFAZOLIN 2 GM in Premix Bag 1 BAG IVPB SCH (13:45)
[2020-09-19 14:00] LABS: SARS-CoV-2 NAA Rapid Test Not Detected (NotDetected)
[2020-09-19 14:32] LABS: Bilirubin Negative (Negative); Blood, Urine Negative (Negative); Clarity Turbid (Clear); Glucose, Urine (Dipstick) Normal (Negative); Ketone, Urine Negative (Negative); Leukocyte 500 Leu/uL (Negative); Nitrite Negative (Negative); Protein, Urine (Dipstick) 10 mg/dL (Neg-Trace); RBC/HPF 0-3 HPF (0-3); Squamous Epithelial 0-3 HPF (0-3); Urobilinogen Normal mg/dL (Less than 2); WBC/HPF Greater than 50 HPF (0-3); pH, Urine 6.5 (5.0-9.0)
[2020-09-19 14:40] LABS: Bacteria/HPF 3+ HPF (None Seen)
--- NOTE | 2020-09-19 15:04 | HP ---
REQUESTING PHYSICIAN: Dr. Oscar. ATTENDING SURGEON: Dr. Oakley. CONSULTATIONS: Orthopedics, Dr. Veras. HISTORY OF PRESENT ILLNESS: The patient is an 84-year-old woman with severe dementia, who lives at home with her family, who reportedly fell out of her bed and was unable to ambulate. Family notes that she normally walks with minimal assistance, so they brought her to the emergency department where she underwent evaluation and examination, was noted to have a right femoral neck fracture; at which time, we were asked to evaluate the patient for admission and obtain Orthopedic consultations. There was no reported loss of consciousness, but this was an unwitnessed fall. The patient did undergo CT evaluation of the brain and C-spine, both of which were negative. ALLERGIES: NONE. CURRENT MEDICATIONS: 1. Risperidone. 2. Alprazolam. 3. Memantine. 4. Donepezil. 5. Levothyroxine. PAST MEDICAL HISTORY: Hypothyroidism, severe dementia, and degenerative joint disease. PAST SURGICAL HISTORY: Open reduction and internal fixation of distal radius fracture, left hip surgery, status post hemiarthroplasty. SOCIAL HISTORY: The patient lives at home with family. There is no reported history of drug, tobacco, or alcohol use. 10-point review of systems is negative as otherwise stated. PHYSICAL EXAMINATION: VITAL SIGNS: Blood pressure 129/67, heart rate 68, respirations 14, oxygen saturation 98% on room air, and temperature is 97.9. GENERAL: The patient is resting comfortably in bed. Daughter/histologic technician is at bedside. The patient is awake, primarily nonverbal. She will interact with her daughter, but minimally with me and she did follow very basic commands. Janice Coma Scale will be 13, -1 for eye opening and -1 for confusion. HEENT: Head is normocephalic and atraumatic. Eyes, PERRLA. The patient does not follow for extraocular motion. Nose, atraumatic with discharge. Ears are atraumatic with discharge. Oropharynx is clear. NECK: Nontender. Trachea is midline with no JVD. CHEST: Clear to auscultation with moderate inspiratory and expiratory effort. HEART: Regular rate and rhythm. ABDOMEN: Soft, nontender with active bowel sounds. PELVIS: Stable with tenderness to palpation to right hip consistent with her fracture. EXTREMITIES: Neurovascularly intact x4. Right lower extremity is slightly shortened and externally rotated. Bilateral upper extremity shows bruising to the forearms in various stages of acuity. BACK: By report is atraumatic and nontender. LABORATORY FINDINGS: White blood cell count 8.0, hemoglobin 13.2, hematocrit 39.6, and platelets 243. Sodium 144, potassium 4.0, chloride 108, CO2 of 25, BUN 27, creatinine 0.67, glucose 119. LFTs are unremarkable. Troponin is less than 0.010. INR is 1.0. COVID is negative. Influenza A and B are negative. RADIOGRAPHIC FINDINGS: CT of the brain without contrast shows no acute intracranial findings. CT of the C-spine without contrast shows degenerative changes with no fracture or acute abnormality. Views of the right hip show a mildly displaced intertrochanteric femur fracture. Views of the right knee show no fracture identified. Views of the right femur again demonstrate a femoral neck fracture. AP chest x-ray shows no acute cardiopulmonary findings. ASSESSMENT: 1. Status post ground level fall. 2. Right intertrochanteric femur fracture. 3. Acute pain secondary to above. 4. History of dementia and hypothyroidism. PLAN: Plan will be to keep the patient n.p.o. as she is not eating today and Dr. Veras plans on taking to the operating room today. Postoperatively, we will begin work with physical and occupational therapy to do pulmonary toilet, gastritis, mechanical VTE prophylaxis and discuss placement at that time. The evaluation, examination, laboratory, and radiographic findings were discussed with Dr. Oakley prior to this dictation, and Dr. Veras was notified of this patient. Again, he plans on taking her to the operating room today. Job ID: [id number]
[2020-09-19] MEDS ORDERED: Promethazine HCl 25 MG/ML VIAL SLOW IVP PRN (16:31)
[2020-09-19] MEDS ORDERED: Ondansetron HCl/PF 4 MG/2 ML Vial IVP PRN ×2 (16:31→18:28)
[2020-09-19] MEDS ORDERED: Promethazine HCl 25 MG/ML VIAL IM PRN (16:31)
--- NOTE | 2020-09-19 17:50 | CON ---
DATE OF CONSULTATION: 09/19/2020 CHIEF COMPLAINT: Right hip pain. HISTORY OF PRESENT ILLNESS: Ms. Gamble is an 84-year-old female who has fallen and fractured her right intertrochanteric femur. She is reported to walk with minimal assistance. She was found after falling out of bed. She had pain in the hip. She had advanced dementia, alert and oriented x1 only. Her daughter was previously at the bedside, but she has no family currently. I have been unable to reach them by phone currently. The patient gives a poor history. ALLERGIES: NONE. MEDICATIONS: 1. Risperidone. 2. Alprazolam. 3. Memantine. 4. Donepezil. 5. Levothyroxine. PAST MEDICAL HISTORY: 1. Hypothyroidism. 2. Severe dementia. 3. Osteoarthritis. PAST SURGICAL HISTORY: 1. Previous ORIF of distal radius. 2. Left hip hemiarthroplasty. SOCIAL HISTORY: The patient lives at home with family. She denies tobacco, alcohol, or drug use. FAMILY MEDICAL HISTORY: Cannot be obtained. REVIEW OF SYSTEMS: Cannot be obtained. IMAGING STUDIES: X-rays of the right hip demonstrated displaced intertrochanteric femur fracture with shortening and varus angulation. PHYSICAL EXAMINATION: VITAL SIGNS: The patient is afebrile, she is normotensive, and 98% on room air. GENERAL: She is alert, but does not answer questions appropriately. She is lying supine. She appears comfortable. HEENT: Normocephalic and atraumatic. RESPIRATORY: Breathing comfortably. ABDOMEN: Soft, nontender, and nondistended. MUSCULOSKELETAL: The patient's right lower extremity has shortening and external rotation. She seems to be neurovascularly intact. She is able to wiggle the toes. She has a warm and well-perfused foot and palpable pulses. She is very thin. She has pain with hip motion. Her upper extremities appear to be atraumatic. IMPRESSION: Right intertrochanteric femur fracture in an elderly female. PLAN: At this point, the patient will need to go to the operating room. Her daughter is aware of this, however, unable to reach her. I will continue to try. We will proceed with surgery today as the patient is ready. This will give her pain relief, and allow her early mobilization. Goal would be to prevent complications of prolonged bed rest. She is at risk given her age and comorbidities. She will have antibiotic prophylaxis and DVT prophylaxis. Job ID: [id number]
[2020-09-19] MEDS ORDERED: hydrALAZINE 20 MG/ML VIAL SLOW IVP PRN (20:21)
[2020-09-19] MEDS ORDERED: Ondansetron PF 4 MG/2 ML Vial IVP PRN (20:21)
[2020-09-19] MEDS ORDERED: Dextrose 5% in Water 1,000 ML IV PRN (20:21)
[2020-09-19] MEDS ORDERED: Morphine 2 MG/ML VIAL SLOW IVP PRN (20:21)
[2020-09-19] MEDS ORDERED: Ondansetron ODT 4 MG TAB PO PRN (20:21)
[2020-09-19] MEDS ORDERED: Dextrose 50% Abboject 50 ML SYRINGE SLOW IVP PRN (20:21)
[2020-09-19] MEDS ORDERED: traMADol HCl 50 MG TAB PO PRN ×2 (20:21)
[2020-09-19] MEDS ORDERED: Cyclobenzaprine 10 MG TAB PO PRN (20:21)
--- NOTE | 2020-09-19 20:38 | RAD ---
RADIOGRAPH RIGHT HIP THREE VIEWS: Date: 09-19-2020 History: 84-year-old female with acute, traumatic right proximal femoral fracture. Comparison: 09-19-2020 at 12:18 p.m. FINDINGS: Small field of view fluoroscopic spot images obtained with C-arm in the OR. There has been interval p lacement of Frank's type dynamic compression screw with distal tip within the femoral head. It is a ttached to a short lateral side plate with screws attaching it to the proximal femoral diaphysis. Ali gnment is now nearly anatomical. IMPRESSION: Interval reduction and fixation of right basicervical or intertrochanteric, and right subcapital frac tures. POS: JIN
--- NOTE | 2020-09-19 20:45 | OP ---
DATE OF PROCEDURE: 09/19/2020 PROCEDURE PERFORMED: Right intertrochanteric femur fracture with dynamic hip screw fixation. PREOPERATIVE DIAGNOSIS: Displaced right intertrochanteric femur fracture. POSTOPERATIVE DIAGNOSIS: Displaced right intertrochanteric femur fracture. COMPLICATIONS: None. ESTIMATED BLOOD LOSS: 100 mL. IMPLANTS: Synthes dynamic hip screw with sideplate 3 hole plate 135 degrees. INDICATIONS: Ms. Gamble is an 84-year-old female who has fallen and fractured her right femur. She has been indicated for the above procedure to restore anatomic alignment, promote healing, and to promote early mobilization. Goal is to prevent complications of prolonged bedrest. Risks have been reviewed. She is at elevated risk given her age and comorbidities. DESCRIPTION OF PROCEDURE: Ms. Gamble was identified in the preoperative holding area. Her correct extremity was marked. She was carried to the operating room. She was positioned supine. General anesthesia was induced. The right lower extremity was prepped and draped in sterile fashion. We began the procedure with reducing the fracture under intraoperative x-ray. We pulled traction and rotated the limb. Once we had an anatomic reduction, we made a small incision over the lateral thigh. We dissected down through the subcutaneous tissues to the fascia, which was opened. We then split the vastus lateralis muscle near its posterior border. At this point, we worked more deeply down to the femur. We then placed a 135-degree angle guide. We placed a guide pin in the centered position of the femoral head. This was checked on orthogonal planes. Next, we proceeded to over-ream the guide pin. We measured appropriate length. We then inserted our hip screw. We impacted a 3 hole DHS plate over the screw and then placed three 4.5 mm screws. We took final x-ray images. We thoroughly irrigated with copious lavage and then closed in layers. A sterile dressing was applied. The patient was taken to the recovery room in good condition. Job ID: [id number]
[2020-09-19] MEDS: Sodium Chloride 0.9% 1,000 ML IV SCH (21:40)
[2020-09-19] MEDS: CEFAZOLIN 2 GM in Premix Bag 1 BAG IVPB SCH (21:41)
[2020-09-19] MEDS: Ibuprofen 600 MG TAB PO SCH (21:43)
[2020-09-19] MEDS: Famotidine 20 MG TAB PO SCH (21:43)
[2020-09-20 01:34] VITALS: BMI 17.3
[2020-09-20] MEDS: Acetaminophen 325 MG TAB PO SCH ×5 (01:37→23:12)
[2020-09-20] MEDS: CEFAZOLIN 2 GM in Premix Bag 1 BAG IVPB SCH (05:53)
[2020-09-20] MEDS: Ibuprofen 600 MG TAB PO SCH (05:55)
[2020-09-20] MEDS: Sodium Chloride 0.9% 1,000 ML IV SCH ×2 (06:04→06:15)
[2020-09-20 06:14] LABS: Anion Gap 12 mmol/L (10-20); BUN (Urea Nitrogen) 23 mg/dL (9.8-20.1); Calc. Creatinine Clearance 47 mL/min (70-130); Calcium 7.6 mg/dL (7.8-10.44); Carbon Dioxide 27 mmol/L (23-31); Chloride 108 mmol/L (98-107); Glucose 108 mg/dL (83-110); Potassium 4.5 mmol/L (3.5-5.1); Sodium 142 mmol/L (136-145)
[2020-09-20 07:30] LABS: #Lymphocytes 0.8 thou/uL (1.20-3.40); #Monocytes 1.1 thou/uL (0.11-0.59); %Basophils 0.1 % (0.0-1.0); %Lymphocytes 9.4 % (21.0-51.0); %Monocytes 14.3 % (0.0-10.0); %Neutrophils 76.1 % (42.0-75.0); Hemoglobin 9.3 g/dL (12.0-16.0); Mean Corpuscular HGB CONC 33.5 g/dL (32.0-36.0); Mean Corpuscular Hemoglobin 32.9 pg (27.0-31.0); Mean Corpuscular Volume 98.2 fL (78.0-98.0); Mean Platelet Volume 8.1 fL (7.4-10.4); Platelet Count 202 thou/uL (130-400); RBC Distribution Width 13.7 % (11.5-14.5); Red Blood Cell (RBC) Count 2.81 mill/uL (4.20-5.40); White Blood Cell (WBC) Count 7.9 thou/uL (4.8-10.8)
[2020-09-20] MEDS: Famotidine 20 MG TAB PO SCH ×2 (08:23→20:25)
[2020-09-20] MEDS: Aspirin Chewable 81 MG TAB PO SCH ×2 (10:26→20:25)
[2020-09-20] MEDS: Ibuprofen 200 MG TAB PO SCH ×2 (13:23→22:48)
--- NOTE | 2020-09-20 16:04 | PRG ---
DATE OF SERVICE: 09/20/2020 SUBJECTIVE: The patient is currently on the surgical floor. She is hospital day 2, postop day 1, status post ground level fall, in which she sustained a right intertrochanteric femur fracture. She has undergone dynamic hip screw fixation of that fracture, which she tolerated well. The patient does have severe dementia and this morning was noted by housekeeping that she was out of bed and standing beside the window just looking out. Family was not available to stay with her at this time, but we will make arrangements for that. Fortunately, the patient is weightbearing as tolerated on her extremities, so there was a little concern that she injured her hardware. Otherwise, there were no issues overnight. The patient had breakfast this morning and she is tolerating those and appears to be comfortable. PHYSICAL EXAMINATION: VITAL SIGNS: Temperature 99.6, heart rate 53, respirations 16, oxygen saturation 98% on room air, and blood pressure is 98/51. GENERAL: The patient is now resting comfortably in bed. She is awake and would respond to very simple commands and very simple questions, in this from seeing her last night in the emergency department, this appears to be her baseline. RESPIRATIONS: Clear bilaterally. Heart: Regular rate and rhythm. ABDOMEN: Soft, nontender with active bowel sounds. EXTREMITIES: Neurovascularly intact x4. LABORATORY FINDINGS: White blood cell count 7.9, hemoglobin 9.3, hematocrit 27.6, and platelets 202. Sodium 142, potassium 4.5, chloride 108, CO2 of 27, BUN 23, creatinine 0.61, glucose 108. There are no radiographs to review this morning. ASSESSMENT AND PLAN: 1. Status post ground level fall. 2. Status post dynamic hip screw fixation of intertrochanteric femur fracture. 3. History of dementia and hypothyroidism. Plan will be to continue supportive care. Encourage physical and occupational therapy, and when family arrives, discuss placement with them at that time. The evaluation and examination were done with Dr. Chong during rounds this morning. Job ID: [id number]
[2020-09-20] MEDS ORDERED: RisperDAL M-TAB 1 MG TAB SL SCH (16:30)
[2020-09-20] MEDS: diphenhydrAMINE 25 MG CAP PO SCH (20:25)
[2020-09-20] MEDS: risperiDONE 0.25 MG TAB PO SCH (20:25)
[2020-09-20] MEDS: Senokot S 8.6-50 MG TAB PO SCH (20:25)
[2020-09-20] MEDS: Donepezil HCl 10 MG TAB PO SCH (20:25)
[2020-09-20] MEDS: ALPRAZolam 0.5 MG TAB PO SCH (20:26)
[2020-09-20] MEDS ORDERED: FLU VACC QS2020-21(65YR UP)/PF 240 MCG/0.7 ML SYRINGE IM ONE (21:00)
[2020-09-21] MEDS: Levothyroxine Sodium 50 MCG TAB PO SCH (06:09)
[2020-09-21] MEDS: Acetaminophen 325 MG TAB PO SCH ×4 (06:09→23:07)
[2020-09-21] MEDS: Ibuprofen 200 MG TAB PO SCH ×3 (06:10→23:08)
[2020-09-21] MEDS ORDERED: traMADol HCl 50 MG TAB PO PRN ×2 (08:30)
[2020-09-21] MEDS ORDERED: RisperDAL M-TAB 1 MG TAB SL SCH (09:00)
[2020-09-21] MEDS: Polyethylene Glycol 3350 17 GM Packet PO SCH (09:27)
[2020-09-21] MEDS: Aspirin Chewable 81 MG TAB PO SCH ×2 (09:27→20:01)
[2020-09-21] MEDS: Senokot S 8.6-50 MG TAB PO SCH ×2 (09:27→20:01)
[2020-09-21] MEDS: diphenhydrAMINE 25 MG CAP PO SCH (20:01)
[2020-09-21] MEDS: risperiDONE 0.25 MG TAB PO SCH (20:02)
[2020-09-21] MEDS: Famotidine 20 MG TAB PO SCH (20:02)
[2020-09-21] MEDS: Donepezil HCl 10 MG TAB PO SCH (20:03)
[2020-09-21] MEDS: ALPRAZolam 0.5 MG TAB PO SCH (20:03)
--- NOTE | 2020-09-22 00:54 | PRG ---
DATE OF SERVICE: 09/21/2020 SUBJECTIVE: The patient was seen this evening during rounds. She was sitting up in bed, but resting comfortably. Nursing reported no acute events. OBJECTIVE: VITAL SIGNS: Temperature 98.0, pulse 80, respirations 16, oxygen saturation 97% on room air, blood pressure 135/79. ASSESSMENT: 1. Status post fall from bed. 2. Right intertrochanteric femur fracture, status post repair. 3. History of hypothyroidism, severe dementia, and DJD. PLAN: Continue current diet and pain regimen. Continue physical and occupational therapy. Continue supportive care. The patient is pending discharge to acute rehab facility. This is a family preference. She is ready for discharge at this time. Job ID: [id number]
--- NOTE | 2020-09-22 05:28 | PRG ---
DATE OF SERVICE: 09/21/2020 SUBJECTIVE: The patient is an 84-year-old female on hospital day 3, postop day 2, status post ground level fall. She sustained a right intertrochanteric femur fracture and has had dynamic hip screw fixation of fracture. The patient has severe dementia and has a sitter at bedside. The patient is sitting up in bed, eating lunch. She was nonverbal today. The sitter is someone who takes care of her at home and states she appears to be very near her baseline. OBJECTIVE: VITAL SIGNS: Blood pressure 100/61, pulse 49, temperature 97.5, respirations 14, O2 saturations 97% on room air. GENERAL: The patient is sitting up, eating lunch and is comfortable in bed. Awake, not oriented. LUNGS: Equal chest rise. Nonlabored. HEART: Regular rate and rhythm. ABDOMEN: Soft. No distention. EXTREMITIES: Neurovascularly intact x4. LABORATORY FINDINGS: No new labs overnight. ASSESSMENT: 1. Status post ground level fall. 2. Status post dynamic hip screw fixation of intertrochanteric femur fracture. 3. History of dementia. PLAN: Plan is to continue supportive care. Pain seems to be managed, although the patient is nonverbal. Case Management is working on placement and discussing with family. The patient came from home, but would likely benefit from inpatient rehab or swing bed. This patient was seen and examined with Dr. Oakley on rounds this morning. Job ID: [id number] MTDD
[2020-09-22] MEDS: Acetaminophen 325 MG TAB PO SCH ×3 (06:13→18:50)
[2020-09-22] MEDS: Levothyroxine Sodium 50 MCG TAB PO SCH (06:13)
[2020-09-22] MEDS: Ibuprofen 200 MG TAB PO SCH ×2 (06:13→15:03)
[2020-09-22 06:21] LABS: #Eosinphils 0.2 thou/uL (0.0-0.7); #Lymphocytes 0.7 thou/uL (1.20-3.40); #Monocytes 0.7 thou/uL (0.11-0.59); %Basophils 0.4 % (0.0-1.0); %Eosinophils 2.7 % (0.0-10.0); %Lymphocytes 10.2 % (21.0-51.0); %Monocytes 10.4 % (0.0-10.0); %Neutrophils 76.4 % (42.0-75.0); Hemoglobin 9.5 g/dL (12.0-16.0); Mean Corpuscular HGB CONC 33.3 g/dL (32.0-36.0); Mean Corpuscular Hemoglobin 32.8 pg (27.0-31.0); Mean Corpuscular Volume 98.5 fL (78.0-98.0); Mean Platelet Volume 8.1 fL (7.4-10.4); Platelet Count 187 thou/uL (130-400); RBC Distribution Width 13.7 % (11.5-14.5); Red Blood Cell (RBC) Count 2.89 mill/uL (4.20-5.40); White Blood Cell (WBC) Count 6.6 thou/uL (4.8-10.8)
[2020-09-22 06:42] LABS: Anion Gap 12 mmol/L (10-20); BUN (Urea Nitrogen) 16 mg/dL (9.8-20.1); Calc. Creatinine Clearance 56 mL/min (70-130); Calcium 7.9 mg/dL (7.8-10.44); Carbon Dioxide 29 mmol/L (23-31); Chloride 106 mmol/L (98-107); Glucose 91 mg/dL (83-110); Phosphorus 2.2 mg/dL (2.3-4.7); Potassium 3.8 mmol/L (3.5-5.1); Sodium 143 mmol/L (136-145)
[2020-09-22] MEDS: Polyethylene Glycol 3350 17 GM Packet PO SCH (09:53)
[2020-09-22] MEDS: Senokot S 8.6-50 MG TAB PO SCH (09:53)
[2020-09-22] MEDS: Aspirin Chewable 81 MG TAB PO SCH (09:53)
[2020-09-22] MEDS ORDERED: Potassium Phosphate 30 MMOL in Sodium Chloride 0.9% 250 ML 250 ML IVPB SCH (12:45)
--- NOTE | 2020-09-22 14:19 | PRG ---
DATE OF SERVICE: 09/22/2020 SUBJECTIVE: The patient was seen during morning rounds, sitting up, looking at a book. The patient had no overnight events. The patient's sitter is currently at bedside. The patient has not had a bowel movement since admission. The patient is on a bowel regimen. The patient's appetite has been adequate. The patient's urinary output is adequate for the patient's age and weight. The patient voices no complaints. OBJECTIVE: VITAL SIGNS: Temperature 98.4, pulse 68, respirations 14, SpO2 of 95% on room air, blood pressure 103/70. GENERAL: An elderly female, awake, alert, at baseline. HEENT: Unremarkable. RESPIRATORY: Good inspiratory and expiratory effort. Respirations are even and nonlabored. CARDIAC: Regular rate, regular rhythm. EXTREMITIES: Moves all extremities, neurovascularly intact x4. LABORATORY DATA: WBC 6.6, RBC 2.89, hemoglobin 9.5, hematocrit 28.4, platelets 187. Sodium 143, potassium 3.8, BUN 16, creatinine 0.51, estimated GFR greater than 90, glucose 91, calcium 7.9, phosphorus 2.2, magnesium 2.0. DIAGNOSTICS: There are no new diagnostics to review today. ASSESSMENT: 1. Status post ground level fall. 2. Status post dynamic hip screw fixation for right intertrochanteric femur fracture. 3. Hypophosphatemia. 4. History of severe dementia, hypothyroidism, and degenerative joint disease. PLAN: Continue supportive care and pain regimen. Increase physical and occupational therapy. We will replace electrolytes. Case management working on placement. We will increase the patient's bowel regimen. Job ID: [id number]
[2020-09-22] MEDS ORDERED: PHOS-NAK 1 PKT PACK PO SCH (15:15)
[2020-09-22 19:34] VITALS: BP 109/55; TEMP 98.6
[2020-09-22] MEDS ORDERED: Senokot S 8.6-50 MG TAB PO SCH (21:00)
--- NOTE | 2020-09-25 14:51 | EKG ---
Test Reason : Blood Pressure : / mmHG Vent. Rate : 062 BPM Atrial Rate : 108 BPM P-R Int : 000 ms QRS Dur : 102 ms QT Int : 434 ms P-R-T Axes : 089 -53 081 degrees QTc Int : 440 ms Undetermined rhythm Incomplete right bundle branch block Left anterior fascicular block Left ventricular hypertrophy with repolarization abnormality Cannot rule out Septal infarct , age undetermined Abnormal ECG Confirmed by YOBANI MCMAHON M.D. ([id number]), slot editor ADEEL DEGROOT ([id number]) on 09/25/2020 2:51:19 PM Referred By: Confirmed By:YOBANI MCMAHON M.D.
== END 2020-09-22 19:46 | DRG 482 ==
LOC: ERS 11:43 → ERHOLD 13:26 → SURG A 16:02
PROVIDERS: ADMIT Surgery; ATTEND Surgery
PROC: 0QS604Z Reposition Right Upper Femur with Internal Fixation Device, Open Approach (ICD-10-PCS; principal; 2020-09-19)
DX: S72.141A Displaced intertrochanteric fracture of right femur, initial encounter for closed fracture (principal); F03.90 Unspecified dementia, unspecified severity, without behavioral disturbance, psychotic disturbance, mood disturbance, and anxiety; E03.9 Hypothyroidism, unspecified; W18.30XA Fall on same level, unspecified, initial encounter; E83.39 Other disorders of phosphorus metabolism; M19.90 Unspecified osteoarthritis, unspecified site; F32.9 Major depressive disorder, single episode, unspecified; Z96.642 Presence of left artificial hip joint
CPT/HCPCS: 0240U; 36415; 51702; 70450; 71045; 72125; 76000; 80048; 80053; 81003; 81015; 83735; 84100; 84484; 85025; 85610; 93005; 96374; C1713; G0390; J0690; J1100; J1885; J2405; J2704; J3010; J3490; J7050; Q0163

== ENCOUNTER 2022-08-17 10:27 | Observation (INO) | payer MEDICARE, BC ==
[2022-08-17 11:47] LABS: #Eosinphils 0.1 thou/uL (0.0-0.7); #Monocytes 0.6 thou/uL (0.11-0.59); #Neutrophils 3.6 thou/uL (1.40-6.50); %Basophils 0.2 % (0.0-1.0); %Eosinophils 0.9 % (0.0-10.0); %Lymphocytes 19.1 % (21.0-51.0); %Monocytes 12.1 % (0.0-10.0); %Neutrophils 67.6 % (42.0-75.0); Mean Corpuscular HGB CONC 32.9 g/dL (32.0-36.0); Mean Corpuscular Hemoglobin 33.4 pg (27.0-31.0); Mean Platelet Volume 8.4 fL (7.4-10.4); Platelet Count 237 10x3/uL (130-400); RBC Distribution Width 13.2 % (11.5-14.5); White Blood Cell (WBC) Count 5.3 10x3/uL (4.8-10.8)
[2022-08-17 11:47] LABS: Bilirubin Negative (Negative); Blood, Urine Negative (Negative); Clarity Clear (Clear); Glucose, Urine (Dipstick) Normal (Negative); Ketone, Urine Negative (Negative); Leukocyte Negative Leu/uL (Negative); Nitrite Negative (Negative); Protein, Urine (Dipstick) Negative (Neg-Trace); Specific Gravity, Urine 1.019 (1.002-1.036); Urobilinogen Normal mg/dL (Less than 2)
[2022-08-17 12:14] LABS: ALT (SGPT) 21 U/L (8-55); AST (SGOT) 31 U/L (5-34); Albumin 4.1 g/dL (3.4-4.8); Alkaline Phosphatase 43 U/L (40-110); Anion Gap 14 mmol/L (10-20); BUN (Urea Nitrogen) 18 mg/dL (9.8-20.1); Bilirubin, Total 0.5 mg/dL (0.2-1.2); Calc. Creatinine Clearance 0 mL/min (70-130); Carbon Dioxide 26 mmol/L (23-31); Chloride 104 mmol/L (98-107); Estimated GFR 86; Globulin 2.4 g/dL (2.4-3.5); Glucose 106 mg/dL (83-110); Potassium 4.5 mmol/L (3.5-5.1); Protein, Total 6.5 g/dL (5.8-8.1); Sodium 139 mmol/L (136-145)
[2022-08-17 16:20] LABS: Troponin I Less than 0.010 ng/mL (< 0.028)
[2022-08-17] MEDS ORDERED: Acetaminophen 650 MG Suppository PR PRN (16:34)
[2022-08-17] MEDS ORDERED: Acetaminophen 325 MG TAB PO PRN (16:34)
[2022-08-17] MEDS: Sodium Chloride 0.9% 1,000 ML IV SCH (18:07)
[2022-08-17 19:04] LABS: Troponin I Less than 0.010 ng/mL (< 0.028)
[2022-08-17] MEDS ORDERED: Donepezil HCl 10 MG TAB PO SCH (21:00)
[2022-08-17] MEDS ORDERED: risperiDONE 0.25 MG TAB PO SCH (21:00)
[2022-08-17] MEDS: Senokot S 8.6-50 MG TAB PO SCH (22:50)
[2022-08-18 04:35] VITALS: BMI 16.8
[2022-08-18] MEDS: Sodium Chloride 0.9% 1,000 ML IV SCH (04:42)
[2022-08-18 05:38] LABS: #Monocytes 0.7 thou/uL (0.11-0.59); %Basophils 0.3 % (0.0-1.0); %Eosinophils 0.3 % (0.0-10.0); %Lymphocytes 13.1 % (21.0-51.0); %Monocytes 9.4 % (0.0-10.0); %Neutrophils 76.9 % (42.0-75.0); Hemoglobin 11.9 g/dL (12.0-16.0); Mean Corpuscular HGB CONC 32.5 g/dL (32.0-36.0); Mean Corpuscular Hemoglobin 32.9 pg (27.0-31.0); Mean Platelet Volume 8.4 fL (7.4-10.4); Platelet Count 225 10x3/uL (130-400); RBC Distribution Width 13.1 % (11.5-14.5); White Blood Cell (WBC) Count 7.8 10x3/uL (4.8-10.8)
[2022-08-18 05:57] LABS: Anion Gap 12 mmol/L (10-20); BUN (Urea Nitrogen) 20 mg/dL (9.8-20.1); Calc. Creatinine Clearance 46 mL/min (70-130); Calcium 8.5 mg/dL (7.8-10.44); Carbon Dioxide 25 mmol/L (23-31); Chloride 107 mmol/L (98-107); Estimated GFR 88; Glucose 105 mg/dL (83-110); Potassium 3.9 mmol/L (3.5-5.1); Sodium 140 mmol/L (136-145)
[2022-08-18 08:27] VITALS: TEMP 97.9
[2022-08-18] MEDS ORDERED: Polyethylene Glycol 3350 17 GM Packet PO SCH (09:00)
[2022-08-18] MEDS ORDERED: Levothyroxine Sodium 50 MCG TAB PO SCH (09:00)
[2022-08-18] MEDS: Senokot S 8.6-50 MG TAB PO SCH (09:21)
[2022-08-18 11:25] VITALS: BP 99/61
== END 2022-08-18 15:16 | disposition home health service (06) ==
LOC: ERS 10:27 → SURG B 15:25
PROVIDERS: ADMIT Internal Medicine; ATTEND Internal Medicine
DX: R53.1 Weakness (principal); F03.90 Unspecified dementia, unspecified severity, without behavioral disturbance, psychotic disturbance, mood disturbance, and anxiety; E03.9 Hypothyroidism, unspecified; M81.0 Age-related osteoporosis without current pathological fracture; H91.92 Unspecified hearing loss, left ear; I45.2 Bifascicular block; Z79.83 Long term (current) use of bisphosphonates; Z79.890 Hormone replacement therapy; Z79.899 Other long term (current) drug therapy
CPT/HCPCS: 51701; 70450; 71045; 72170; 73502; 80048; 81003; 84484 ×2; 85025; 87086; 93005; 97116; 99285; G0378 ×3; 36415; 80053; 84443; J7050

== ENCOUNTER 2023-05-19 16:33 | Inpatient (IN) | payer MEDICARE, BC ==
[2023-05-19 17:36] LABS: #Basophils 0.1 thou/uL (0.0-0.2); #Neutrophils 11.8 thou/uL (1.40-6.50); %Basophils 0.4 % (0.0-1.0); %Lymphocytes 3.7 % (21.0-51.0); %Monocytes 7.3 % (0.0-10.0); %Neutrophils 88.2 % (42.0-75.0); Hematocrit 44.4 % (36.0-47.0); Hemoglobin 14.5 g/dL (12.0-16.0); Mean Corpuscular HGB CONC 32.7 g/dL (32.0-36.0); Mean Corpuscular Hemoglobin 32.8 pg (27.0-31.0); Mean Corpuscular Volume 100.5 fl (78.0-98.0); Mean Platelet Volume 10.3 fL (7.4-10.4); Platelet Count 296 10x3/uL (130-400); RBC Distribution Width 14.7 % (11.5-14.5); Red Blood Cell (RBC) Count 4.42 mill/uL (4.20-5.40); White Blood Cell (WBC) Count 13.4 10x3/uL (4.8-10.8)
[2023-05-19 18:03] LABS: ALT (SGPT) 14 U/L (8-55); AST (SGOT) 21 U/L (5-34); Albumin 3.9 g/dL (3.4-4.8); Alkaline Phosphatase 56 U/L (40-110); Anion Gap 16 mmol/L (10-20); BUN (Urea Nitrogen) 21 mg/dL (9.8-20.1); Bilirubin, Total 0.3 mg/dL (0.2-1.2); Calc. Creatinine Clearance 0 mL/min (70-130); Calcium 9.2 mg/dL (7.8-10.44); Carbon Dioxide 26 mmol/L (23-31); Chloride 99 mmol/L (98-107); Estimated GFR 86; Globulin 2.8 g/dL (2.4-3.5); Glucose 129 mg/dL (83-110); Lipase Less than 4 U/L (8-78); Potassium 4.6 mmol/L (3.5-5.1); Protein, Total 6.7 g/dL (5.8-8.1); Sodium 136 mmol/L (136-145)
[2023-05-19 18:07] LABS: Troponin I Less than 0.010 ng/mL (< 0.028)
[2023-05-19 18:14] LABS: SARS-CoV-2 NAA Rapid Test Not Detected (NotDetected)
[2023-05-19 18:36] LABS: Bacteria/HPF 3+ HPF (None Seen); Bilirubin Negative (Negative); Blood, Urine 1+ (Negative); CAUTI Indications for Culture Alt mental st,lethar; Clarity Turbid (Clear); Glucose, Urine (Dipstick) Normal (Negative); Ketone, Urine Trace mg/dL (Negative); Leukocyte 25 Leu/uL (Negative); Nitrite 2+ (Negative); Protein, Urine (Dipstick) 30 mg/dL (Neg-Trace); RBC/HPF 0-3 HPF (0-3); Specific Gravity, Urine 1.024 (1.002-1.036); Squamous Epithelial 0-3 HPF (0-3); Urobilinogen Normal mg/dL (Less than 2)
[2023-05-19 18:38] LABS: Urine Culture Reflex No No
[2023-05-19] MEDS ORDERED: cefTRIAXone (ROCEPHIN) 2 GM VIAL ONE (18:45)
[2023-05-19] MEDS ORDERED: Azithromycin 500 MG VIAL ONE (18:45)
[2023-05-19] MEDS ORDERED: Senokot S 8.6-50 MG TAB PO PRN (19:48)
[2023-05-19] MEDS ORDERED: Acetaminophen 325 MG TAB PO PRN (19:48)
[2023-05-19] MEDS ORDERED: Acetaminophen 650 MG Suppository PR PRN (19:48)
[2023-05-19] MEDS ORDERED: Ipratropium/Albuterol 3 ML NEB NEB PRN (19:56)
[2023-05-19] MEDS ORDERED: ALPRAZolam 0.5 MG TAB PO PRN (20:21)
[2023-05-19] MEDS: diphenhydrAMINE 25 MG CAP PO SCH (21:15)
[2023-05-19] MEDS: risperiDONE 0.25 MG TAB PO SCH (21:15)
[2023-05-19] MEDS: Famotidine 20 MG TAB PO SCH (21:15)
[2023-05-20 04:36] LABS: Actual Bicarbonate (HCO3a) 25.4 mEq/L (22-28); Base Excess (BEa) 0.7 mEq/L (-2.0 to +3.0); CO2 Tension 40.8 mmHg (35.0-45.0); Calcium, Ionized (arterial) 1.12 mmol/L (1.12-1.30); Hematocrit-ABG 39 % (36.0-47.0); Hemoglobin (Hb) 13.2 g/dL (12.0-16.0); Potassium - ABG Lab 3.82 mmol/L (3.70-5.30); pH, Arterial 7.412 (7.35-7.45)
[2023-05-20 04:37] LABS: Puncture Site RRA
[2023-05-20] MEDS: Levothyroxine Sodium 50 MCG TAB PO SCH (05:10)
[2023-05-20] MEDS ORDERED: Propofol 1,000 MG/100 ML VIAL IV ONE (06:12)
[2023-05-20] MEDS ORDERED: Ventilator Sedation Protocol 1 EACH FS SCH (06:15)
[2023-05-20] MEDS ORDERED: Rocuronium Bromide 10 MG/ML (10ML VIAL) ONE (06:17)
[2023-05-20 06:27] LABS: Actual Bicarbonate (HCO3a) 22.4 mEq/L (22-28); Base Excess (BEa) -2.4 mEq/L (-2.0 to +3.0); Calcium, Ionized (arterial) 1.14 mmol/L (1.12-1.30); Carboxyhemoglobin (COHb) 0.6 gm% (0.0-3.0); Hematocrit-ABG 41 % (36.0-47.0); O2 Tension (PaO2), arterial 114.7 mmHg (> 60.0); Potassium - ABG Lab 3.36 mmol/L (3.70-5.30); pH, Arterial 7.378 (7.35-7.45)
[2023-05-20 06:29] LABS: Puncture Site LRA
[2023-05-20 06:29] LABS: Hematocrit 43.8 % (36.0-47.0); Hemoglobin 14.1 g/dL (12.0-16.0); Mean Corpuscular HGB CONC 32.2 g/dL (32.0-36.0); Mean Corpuscular Hemoglobin 32.9 pg (27.0-31.0); Mean Corpuscular Volume 102.3 fl (78.0-98.0); Mean Platelet Volume 10.1 fL (7.4-10.4); Platelet Count 251 10x3/uL (130-400); RBC Distribution Width 14.9 % (11.5-14.5); Red Blood Cell (RBC) Count 4.28 mill/uL (4.20-5.40); White Blood Cell (WBC) Count 14.3 10x3/uL (4.8-10.8)
[2023-05-20] MEDS ORDERED: Propofol BOLUS 1,000 MG/100 ML VIAL IV PRN (06:30)
[2023-05-20] MEDS ORDERED: Fentanyl BOLUS 250 ML IVPB PRN (06:30)
[2023-05-20] MEDS ORDERED: Lorazepam 2 MG/ML VIAL SLOW IVP PRN (06:30)
[2023-05-20] MEDS ORDERED: Fentanyl CADD 100 ML IV SCH (06:30)
[2023-05-20] MEDS ORDERED: DISCONTINUE PREVIOUS NARCOTIC PAIN MEDICATIONS AND BENZODIAZEPINES FS SCH (06:30)
[2023-05-20] MEDS ORDERED: Morphine 2 MG/ML VIAL SLOW IVP PRN (06:30)
[2023-05-20] MEDS ORDERED: Propofol 1,000 MG/100 ML VIAL IV PRN (06:30)
[2023-05-20 06:32] LABS: Delete Auto Diff?? YES; Manual Diff?? YES
[2023-05-20 06:58] LABS: Anion Gap 16 mmol/L (10-20); BUN (Urea Nitrogen) 20 mg/dL (9.8-20.1); Calc. Creatinine Clearance 39 mL/min (70-130); Calcium 8.7 mg/dL (7.8-10.44); Carbon Dioxide 22 mmol/L (23-31); Chloride 105 mmol/L (98-107); Estimated GFR 86; Glucose 129 mg/dL (83-110); Potassium 4.1 mmol/L (3.5-5.1); Sodium 139 mmol/L (136-145)
[2023-05-20 06:59] LABS: Band 15 % (5-11); CellaVision Operator ID lab.abc; Lymphocytes 7 % (21-51); Monocytes 5 % (0-10); Neutrophil 74 % (42-75); Platelet Adequacy Comment Platelets Normal; RBC Morphology Within Normal Limits; Smudge Cells 15.1 %; Total Cell Count 106
[2023-05-20] MEDS ORDERED: Rocuronium Bromide 10 MG/ML (10ML VIAL) IVP SCH (07:00)
[2023-05-20] MEDS: Donepezil HCl 10 MG TAB PO SCH (09:07)
[2023-05-20] MEDS: Famotidine 20 MG TAB PO SCH ×2 (09:07→20:03)
[2023-05-20] MEDS ORDERED: Ipratropium/Albuterol 3 ML NEB NEB PRN (09:12)
[2023-05-20] MEDS: Dextrose 5%-Lactated Ringers 1,000 ML IV SCH ×2 (09:14→12:41)
[2023-05-20] MEDS ORDERED: Piperacillin/Tazobactam 3.375 GM in Sodium Chloride 0.9% 100 ML IVPB SCH ×2 (10:00→12:00)
[2023-05-20] MEDS: Ipratropium/Albuterol 3 ML NEB IPPB SCH ×4 (10:33→22:17)
[2023-05-20] MEDS: Piperacillin/Tazobactam 3.375 GM in Sodium Chloride 0.9% 100 ML IVPB SCH ×2 (12:42→22:54)
[2023-05-20] MEDS ORDERED: Azithromycin 500 MG in Sodium Chloride 0.9% 250 ML 250 ML IVPB SCH (18:00)
[2023-05-20] MEDS ORDERED: cefTRIAXone\\ROCEPHIN 2 GM in Sodium Chloride 0.9% 100 ML IVPB SCH (20:00)
[2023-05-20] MEDS: diphenhydrAMINE 25 MG CAP PO SCH (20:03)
[2023-05-20] MEDS: risperiDONE 0.25 MG TAB PO SCH (20:03)
[2023-05-21] MEDS: Ipratropium/Albuterol 3 ML NEB IPPB SCH ×6 (02:01→21:43)
[2023-05-21] MEDS: Piperacillin/Tazobactam 3.375 GM in Sodium Chloride 0.9% 100 ML IVPB SCH ×3 (05:59→21:19)
[2023-05-21] MEDS: Levothyroxine Sodium 50 MCG TAB PO SCH (05:59)
[2023-05-21] MEDS: Dextrose 5%-Lactated Ringers 1,000 ML IV SCH ×2 (05:59→13:44)
[2023-05-21 06:00] LABS: Mean Corpuscular HGB CONC 33.2 g/dL (32.0-36.0); Mean Corpuscular Hemoglobin 33.6 pg (27.0-31.0); Mean Platelet Volume 10.4 fL (7.4-10.4); Platelet Count 207 10x3/uL (130-400); RBC Distribution Width 15.2 % (11.5-14.5); Red Blood Cell (RBC) Count 3.07 mill/uL (4.20-5.40); White Blood Cell (WBC) Count 10.1 10x3/uL (4.8-10.8)
[2023-05-21 06:29] LABS: ALT (SGPT) 26 U/L (8-55); AST (SGOT) 31 U/L (5-34); Albumin 2.7 g/dL (3.4-4.8); Alkaline Phosphatase 49 U/L (40-110); Anion Gap 8 mmol/L (10-20); BUN (Urea Nitrogen) 21 mg/dL (9.8-20.1); Bilirubin, Total 0.4 mg/dL (0.2-1.2); Calc. Creatinine Clearance 50 mL/min (70-130); Calcium 7.9 mg/dL (7.8-10.44); Carbon Dioxide 30 mmol/L (23-31); Chloride 107 mmol/L (98-107); Estimated GFR 88; Globulin 2.4 g/dL (2.4-3.5); Glucose 181 mg/dL (83-110); Magnesium 1.9 mg/dL (1.6-2.6); Potassium 3.3 mmol/L (3.5-5.1); Protein, Total 5.1 g/dL (5.8-8.1); Sodium 142 mmol/L (136-145)
[2023-05-21 07:15] LABS: Hemoglobin 10.3 g/dL (12.0-16.0)
[2023-05-21 07:16] LABS: Delete Auto Diff?? YES; Manual Diff?? YES
[2023-05-21 07:24] LABS: Base Excess (BEa) 5.2 mEq/L (-2.0 to +3.0); CO2 Tension 34.5 mmHg (35.0-45.0); Calcium, Ionized (arterial) 1.07 mmol/L (1.12-1.30); Carboxyhemoglobin (COHb) 0.3 gm% (0.0-3.0); Hematocrit-ABG 31 % (36.0-47.0); Hemoglobin (Hb) 10.7 g/dL (12.0-16.0); O2 Tension (PaO2), arterial 142.4 mmHg (> 60.0); Potassium - ABG Lab 3.45 mmol/L (3.70-5.30); pH, Arterial 7.527 (7.35-7.45)
[2023-05-21 07:30] LABS: ALV-art Gradient 99.675 mmHg (0-20); Puncture Site RRA
[2023-05-21 08:07] LABS: Band 36 % (5-11); CellaVision Operator ID LAB.GE; Lymphocytes 6 % (21-51); Monocytes 5 % (0-10); Neutrophil 51 % (42-75); Platelet Adequacy Comment Platelets Normal; Polychromasia SLIGHT = 2-3 cells HPF (0-2); Total Cell Count 100
[2023-05-21] MEDS ORDERED: Potassium Chloride 20 MEQ in Premix Bag 1 BAG IVPB SCH (08:30)
[2023-05-21] MEDS ORDERED: Magnesium 2 GM/50 ML(in water) 2 GM in Premix Bag 1 BAG IVPB SCH (08:30)
[2023-05-21] MEDS: Famotidine 20 MG TAB PO SCH ×2 (08:50→20:05)
[2023-05-21] MEDS: Donepezil HCl 10 MG TAB PO SCH (08:50)
[2023-05-21] MEDS ORDERED: Lorazepam 2 MG/ML VIAL SLOW IVP PRN (10:34)
[2023-05-21 11:37] LABS: Actual Bicarbonate (HCO3a) 28.5 mEq/L (22-28); CO2 Tension 37.6 mmHg (35.0-45.0); Calcium, Ionized (arterial) 1.09 mmol/L (1.12-1.30); Carboxyhemoglobin (COHb) 0.2 gm% (0.0-3.0); Hematocrit-ABG 32 % (36.0-47.0); Hemoglobin (Hb) 10.9 g/dL (12.0-16.0); O2 Tension (PaO2), arterial 132.2 mmHg (> 60.0); Potassium - ABG Lab 3.69 mmol/L (3.70-5.30); pH, Arterial 7.497 (7.35-7.45)
[2023-05-21] MEDS ORDERED: Scopolamine 1.5 mg/72 hour Patch TD SCH (14:00)
[2023-05-21 14:34] LABS: Puncture Site RBA
[2023-05-21] MEDS: Thiamine HCl 200 MG/2 ML VIAL SLOW IVP SCH (20:06)
[2023-05-22] MEDS: Ipratropium/Albuterol 3 ML NEB IPPB SCH ×6 (02:16→22:08)
[2023-05-22 05:31] LABS: #Monocytes 0.6 thou/uL (0.11-0.59); #Neutrophils 9.4 thou/uL (1.40-6.50); %Basophils 0.3 % (0.0-1.0); %Eosinophils 0.3 % (0.0-10.0); %Monocytes 5.6 % (0.0-10.0); Hematocrit 32.4 % (36.0-47.0); Hemoglobin 10.6 g/dL (12.0-16.0); Mean Corpuscular HGB CONC 32.7 g/dL (32.0-36.0); Mean Corpuscular Hemoglobin 33.4 pg (27.0-31.0); Mean Corpuscular Volume 102.2 fl (78.0-98.0); Mean Platelet Volume 10.7 fL (7.4-10.4); Platelet Count 220 10x3/uL (130-400); RBC Distribution Width 15.2 % (11.5-14.5); Red Blood Cell (RBC) Count 3.17 mill/uL (4.20-5.40); White Blood Cell (WBC) Count 10.7 10x3/uL (4.8-10.8)
[2023-05-22] MEDS: Piperacillin/Tazobactam 3.375 GM in Sodium Chloride 0.9% 100 ML IVPB SCH ×3 (05:51→22:20)
[2023-05-22] MEDS: Levothyroxine Sodium 50 MCG TAB PO SCH (05:51)
[2023-05-22 06:01] LABS: ALT (SGPT) 24 U/L (8-55); AST (SGOT) 25 U/L (5-34); Albumin 2.8 g/dL (3.4-4.8); Alkaline Phosphatase 68 U/L (40-110); Anion Gap 10 mmol/L (10-20); BUN (Urea Nitrogen) 17 mg/dL (9.8-20.1); Bilirubin, Total 0.4 mg/dL (0.2-1.2); Calc. Creatinine Clearance 52 mL/min (70-130); Calcium 7.9 mg/dL (7.8-10.44); Carbon Dioxide 29 mmol/L (23-31); Chloride 106 mmol/L (98-107); Estimated GFR 89; Globulin 2.6 g/dL (2.4-3.5); Glucose 101 mg/dL (83-110); Magnesium 2.3 mg/dL (1.6-2.6); Phosphorus 1.7 mg/dL (2.3-4.7); Potassium 3.9 mmol/L (3.5-5.1); Protein, Total 5.4 g/dL (5.8-8.1); Sodium 141 mmol/L (136-145)
[2023-05-22] MEDS: Potassium Phosphate 30 MMOL in Sodium Chloride 0.9% 250 ML 250 ML IVPB SCH ×2 (10:34→11:06)
[2023-05-22] MEDS ORDERED: Potassium Phosphate 15 MMOL in Sodium Chloride 0.9% 100 ML IVPB SCH (11:15)
[2023-05-22] MEDS: Dextrose 5%-Lactated Ringers 1,000 ML IV SCH (11:28)
[2023-05-22] MEDS: Donepezil HCl 10 MG TAB PO SCH (12:51)
[2023-05-22] MEDS: Famotidine 20 MG TAB PO SCH (12:51)
[2023-05-22] MEDS: Famotidine/PF 20 mg/2ml Vial SLOW IVP SCH (20:34)
[2023-05-22] MEDS: Thiamine HCl 200 MG/2 ML VIAL SLOW IVP SCH (20:34)
[2023-05-23] MEDS: Piperacillin/Tazobactam 3.375 GM in Sodium Chloride 0.9% 100 ML IVPB SCH ×3 (05:39→21:23)
[2023-05-23] MEDS: Levothyroxine Sodium 50 MCG TAB PO SCH (05:44)
[2023-05-23] MEDS: Dextrose 5%-Lactated Ringers 1,000 ML IV SCH (06:23)
[2023-05-23 06:57] LABS: #Eosinphils 0.1 thou/uL (0.0-0.7); #Monocytes 0.7 thou/uL (0.11-0.59); #Neutrophils 7.4 thou/uL (1.40-6.50); %Basophils 0.5 % (0.0-1.0); %Eosinophils 0.6 % (0.0-10.0); %Lymphocytes 4.8 % (21.0-51.0); %Neutrophils 85.4 % (42.0-75.0); Hematocrit 31.6 % (36.0-47.0); Hemoglobin 10.2 g/dL (12.0-16.0); Mean Corpuscular HGB CONC 32.3 g/dL (32.0-36.0); Mean Corpuscular Hemoglobin 32.4 pg (27.0-31.0); Mean Corpuscular Volume 100.3 fl (78.0-98.0); Mean Platelet Volume 10.1 fL (7.4-10.4); Platelet Count 239 10x3/uL (130-400); RBC Distribution Width 15.2 % (11.5-14.5); Red Blood Cell (RBC) Count 3.15 mill/uL (4.20-5.40); White Blood Cell (WBC) Count 8.6 10x3/uL (4.8-10.8)
[2023-05-23] MEDS: Ipratropium/Albuterol 3 ML NEB IPPB SCH ×6 (07:18→22:13)
[2023-05-23 07:31] LABS: ALT (SGPT) 18 U/L (8-55); AST (SGOT) 19 U/L (5-34); Albumin 2.7 g/dL (3.4-4.8); Alkaline Phosphatase 64 U/L (40-110); Anion Gap 10 mmol/L (10-20); BUN (Urea Nitrogen) 11 mg/dL (9.8-20.1); Bilirubin, Total 0.5 mg/dL (0.2-1.2); Calc. Creatinine Clearance 58 mL/min (70-130); Carbon Dioxide 25 mmol/L (23-31); Chloride 109 mmol/L (98-107); Estimated GFR 92; Globulin 2.7 g/dL (2.4-3.5); Glucose 100 mg/dL (83-110); Phosphorus 2.1 mg/dL (2.3-4.7); Protein, Total 5.4 g/dL (5.8-8.1); Sodium 140 mmol/L (136-145)
[2023-05-23] MEDS: Donepezil HCl 10 MG TAB PO SCH (07:36)
[2023-05-23] MEDS: Famotidine/PF 20 mg/2ml Vial SLOW IVP SCH ×2 (07:42→21:23)
[2023-05-23] MEDS ORDERED: Potassium Phosphate 30 MMOL in Sodium Chloride 0.9% 250 ML 250 ML IVPB SCH (08:00)
[2023-05-23] MEDS: D5W-AA 4.25% with LYTES 1,000 ML BAG(PPN) IV SCH (15:01)
[2023-05-23] MEDS: Thiamine HCl 200 MG/2 ML VIAL SLOW IVP SCH (21:23)
[2023-05-24] MEDS: Ipratropium/Albuterol 3 ML NEB IPPB SCH ×6 (03:26→22:38)
[2023-05-24] MEDS: Levothyroxine Sodium 50 MCG TAB PO SCH (05:19)
[2023-05-24] MEDS: Piperacillin/Tazobactam 3.375 GM in Sodium Chloride 0.9% 100 ML IVPB SCH ×2 (05:20→13:30)
[2023-05-24 06:57] LABS: #Eosinphils 0.1 thou/uL (0.0-0.7); #Monocytes 0.9 thou/uL (0.11-0.59); %Basophils 0.5 % (0.0-1.0); %Eosinophils 0.8 % (0.0-10.0); %Lymphocytes 6.4 % (21.0-51.0); %Monocytes 10.2 % (0.0-10.0); Hematocrit 31.4 % (36.0-47.0); Hemoglobin 10.6 g/dL (12.0-16.0); Mean Corpuscular HGB CONC 33.8 g/dL (32.0-36.0); Mean Corpuscular Hemoglobin 33.4 pg (27.0-31.0); Mean Corpuscular Volume 99.1 fl (78.0-98.0); Mean Platelet Volume 10.1 fL (7.4-10.4); Platelet Count 266 10x3/uL (130-400); Red Blood Cell (RBC) Count 3.17 mill/uL (4.20-5.40); White Blood Cell (WBC) Count 8.6 10x3/uL (4.8-10.8)
[2023-05-24 08:23] LABS: Anion Gap 10 mmol/L (10-20); BUN (Urea Nitrogen) 10 mg/dL (9.8-20.1); Calc. Creatinine Clearance 56 mL/min (70-130); Calcium 8.3 mg/dL (7.8-10.44); Carbon Dioxide 26 mmol/L (23-31); Chloride 105 mmol/L (98-107); Estimated GFR 91; Glucose 98 mg/dL (83-110); Magnesium 2.1 mg/dL (1.6-2.6); Phosphorus 2.7 mg/dL (2.3-4.7); Potassium 3.8 mmol/L (3.5-5.1); Sodium 137 mmol/L (136-145)
[2023-05-24] MEDS: Famotidine/PF 20 mg/2ml Vial SLOW IVP SCH ×2 (09:12→20:57)
[2023-05-24] MEDS: Donepezil HCl 10 MG TAB PO SCH (09:13)
[2023-05-24] MEDS: D5W-AA 4.25% with LYTES 1,000 ML BAG(PPN) IV SCH (13:51)
[2023-05-24 14:03] VITALS: BMI 16.8
[2023-05-24] MEDS: Thiamine HCl 200 MG/2 ML VIAL SLOW IVP SCH (20:57)
[2023-05-24] MEDS: Amoxicillin/Potassium Clav 500 MG TAB PO SCH (20:57)
[2023-05-25] MEDS: Ipratropium/Albuterol 3 ML NEB IPPB SCH ×2 (02:37→06:42)
[2023-05-25] MEDS: Levothyroxine Sodium 50 MCG TAB PO SCH (05:52)
[2023-05-25 07:51] VITALS: BP 136/63; TEMP 98.6
[2023-05-25] MEDS: Donepezil HCl 10 MG TAB PO SCH (08:55)
[2023-05-25] MEDS: Amoxicillin/Potassium Clav 500 MG TAB PO SCH (08:56)
[2023-05-25] MEDS: Famotidine/PF 20 mg/2ml Vial SLOW IVP SCH (08:56)
[2023-05-25] MEDS ORDERED: Ipratropium/Albuterol 3 ML NEB IPPB SCH (13:00)
== END 2023-05-25 13:08 | disposition hospice, home (50) | DRG 871 ==
LOC: ERS 16:33 → T4-A 18:51 → CCU 05-20 05:17 → T4-A 05-22 22:01
PROVIDERS: ADMIT Internal Medicine; ATTEND Internal Medicine
PROC: 3E03329 Introduction of Other Anti-infective into Peripheral Vein, Percutaneous Approach (ICD-10-PCS; 2023-05-19)
PROC: 0BH17EZ Insertion of Endotracheal Airway into Trachea, Via Natural or Artificial Opening (ICD-10-PCS; principal; 2023-05-20)
PROC: 0DH67UZ Insertion of Feeding Device into Stomach, Via Natural or Artificial Opening (ICD-10-PCS; 2023-05-20)
PROC: 4A133R1 Monitoring of Arterial Saturation, Peripheral, Percutaneous Approach (ICD-10-PCS; 2023-05-20)
PROC: 5A1945Z Respiratory Ventilation, 24-96 Consecutive Hours (ICD-10-PCS; 2023-05-20)
DX: A41.9 Sepsis, unspecified organism (principal); J18.9 Pneumonia, unspecified organism; J69.0 Pneumonitis due to inhalation of food and vomit; J96.01 Acute respiratory failure with hypoxia; N39.0 Urinary tract infection, site not specified; R64 Cachexia; E44.0 Moderate protein-calorie malnutrition; Z68.1 Body mass index [BMI] 19.9 or less, adult; F03.93 Unspecified dementia, unspecified severity, with mood disturbance; E87.20 Acidosis, unspecified; R65.20 Severe sepsis without septic shock; Z51.5 Encounter for palliative care; Z66 Do not resuscitate; Z20.822 Contact with and (suspected) exposure to COVID-19; I45.10 Unspecified right bundle-branch block; F32.A Depression, unspecified; E03.9 Hypothyroidism, unspecified; E83.42 Hypomagnesemia; E87.6 Hypokalemia; E83.39 Other disorders of phosphorus metabolism; Z79.890 Hormone replacement therapy; Z79.899 Other long term (current) drug therapy
CPT/HCPCS: 36415; 36600; 51701; 71045; 71275; 80048; 80053; 81001; 82805; 83605; 83690; 83735; 83880; 84100; 84145; 84443; 84484; 85025; 87040; 87070; 87077; 87086; 87186; 87205; 93005; 94002; 94003; 94640; 96361; 96365; 96375; J0456; J0696; J1650; J2060; J2543; J2704; J3411; J3475; J3480; J3490; J7050; J7620; S0028